=== PATIENT | male | born 1990 | race Caucasian/White ===

== ENCOUNTER 2018-02-15 11:17 | Inpatient (IN) | payer MEDICAID ==
[~2018-02-15] VITALS: Ht 167.6 cm; Wt 61.9 kg
[~2018-02-15 11:17] MED LIST: ALBU2.5V13 IH; CLON0.1T PO; DIPH25CA83 PO; DOCU-138 PO; FAMO-134 MT; HYDR-4001 PO; ONDA4SOL2 PO; PHEN100C4 PO
[2018-02-15] MEDS ORDERED: PIPERACILLIN/TAZ 3.375G PREMIX 50 ML IV ONE (12:00)
[2018-02-15] MEDS ORDERED: SODIUM CHLORIDE 0.9% 1000ML BAG (SEPSIS BOLUS) IV ONE (12:00)
[2018-02-15] MEDS ORDERED: VANCOMYCIN 1 G PREMIX 200 ML IV ONE (12:00)
[2018-02-15 12:38] LABS: BG BASE EXCESS 7.1 mmol/L (-2.0-2.0); BG CARBOXYHEMOGLOBIN 0.3 % (0.5-1.5); BG DEOXYHEMOGLOBIN 2.7 % (0.0-5.0); BG FRACTION INSPIRED OXYGEN 40; BG HCO3 ACT 33.7 mmol/L (22.0-26.0); BG METHEMOGLOBIN 0.3 % (0.0-1.5); BG OXYGEN SATURATION 97.3 % (92.0-98.5); BG OXYHEMOGLOBIN 96.7 % (94.0-97.0); BG PCO2 55.4 mmHg (35.0-45.0); BG PH 7.402 (7.350-7.450); BG PO2 96.1 mmHg (75.0-100.0); BG SAMPLE SITE RIGHT RADIAL; BG TIDAL VOLUME(mL) 500 mL; BG TOTAL HEMOGLOBIN 14.9 g/dL (12.0-18.0); BG VENT MODE VENT - A/C; BG VENT RATE 12 set
[2018-02-15 12:49] LABS: HEMATOCRIT. 44.9 % (42.0-52.0); MEAN CORPUSCULAR HEMOGLOBIN 29.6 pg (28.0-32.0); MEAN CORPUSCULAR VOLUME 88.3 fL (80.0-94.0); PLATELET 330 x1000/uL (130-400); RED BLOOD CELL COUNT 5.08 mill/uL (4.7-6.1); RED CELL DISTRIBUTION WIDTH 13.2 % (11.6-14.6)
[2018-02-15 12:53] LABS: INR 1.1; PARTIAL THROMBOPLASTIN TIME 25.6 sec (23.4-31.0); PROTHROMBIN TIME 11.4 sec (9.4-11.6)
[2018-02-15 12:56] LABS: CHLORIDE 100 mEq/L (98-107)
[2018-02-15 13:10] LABS: PLATELET ESTIMATE NORMAL
[2018-02-15] MEDS ORDERED: PHENYTOIN SODIUM 1,000 MG in SODIUM CHLORIDE 0.9% 100 ML IV ONE (13:45)
[2018-02-15] MEDS ORDERED: PIPERACILLIN/TAZ 3.375G PREMIX 50 ML IV SCH (14:00)
[2018-02-15] MEDS ORDERED: IPRATROPIUM/ALBUTEROL 0.5-3(2.5)MG/3ML NEB HHN PRN (14:00)
[2018-02-15] MEDS: PHENYTOIN SODIUM EXTENDED 100MG CAPSULE PO SCH (14:00)
[2018-02-15] MEDS ORDERED: IPRATROPIUM/ALBUTEROL 0.5-3(2.5)MG/3ML NEB HHN SCH (18:00)
[2018-02-15 19:04] LABS: CLARITY URINE CLEAR (CLEAR); COLOR URINE YELLOW (YELLOW); KETONES URINE NEGATIVE (NEGATIVE); LEUKOCYTE ESTERASE URINE TRACE (NEGATIVE); NITRITE URINE NEGATIVE (NEGATIVE); OCCULT BLOOD URINE 3+ (NEGATIVE); PH URINE 5.5 (4.5-8.0); PROTEIN URINE NEGATIVE (NEGATIVE); SPECIFIC GRAVITY URINE 1.022 (1.005-1.030); UROBILINOGEN URINE 0.2 E.U./dL (0.2-1.0)
[2018-02-15] MEDS ORDERED: LORAZEPAM 2MG/ML CPJ IV ONE (23:00)
[2018-02-16] VITALS (11 sets, daily range): BP systolic 122–154; BP diastolic 70–82
[2018-02-16] MEDS: PIPERACILLIN/TAZ 3.375G PREMIX 50 ML IV SCH ×5 (04:00→23:34)
[2018-02-16] MEDS ORDERED: VANCOMYCIN 1 G PREMIX 200 ML IV SCH (04:00)
[2018-02-16 06:53] LABS: HEMATOCRIT. 38.2 % (42.0-52.0); HEMOGLOBIN. 12.7 g/dL (14.0-18.0); MEAN CORPUSCULAR HEMOGLOBIN 29.1 pg (28.0-32.0); MEAN CORPUSCULAR VOLUME 87.5 fL (80.0-94.0); MEAN PLATELET VOLUME 9.4 fl (7.4-10.4); PLATELET 275 x1000/uL (130-400); RED BLOOD CELL COUNT 4.36 mill/uL (4.7-6.1); RED CELL DISTRIBUTION WIDTH 13.4 % (11.6-14.6)
[2018-02-16] MEDS: PHENYTOIN SODIUM EXTENDED 100MG CAPSULE PO SCH ×2 (06:58→14:29)
[2018-02-16 07:09] LABS: CHLORIDE 104 mEq/L (98-107)
[2018-02-16] MEDS: IPRATROPIUM/ALBUTEROL 0.5-3(2.5)MG/3ML NEB HHN SCH ×3 (08:11→20:01)
[2018-02-16 10:49] LABS: PLATELET ESTIMATE NORMAL
[2018-02-16] MEDS: VANCOMYCIN 1 G PREMIX 200 ML IV SCH ×2 (15:58→21:23)
[2018-02-16 17:58] LABS: BG BASE EXCESS 4.9 mmol/L (-2.0-2.0); BG CARBOXYHEMOGLOBIN 0.3 % (0.5-1.5); BG DEOXYHEMOGLOBIN 4.6 % (0.0-5.0); BG FRACTION INSPIRED OXYGEN 50; BG HCO3 ACT 30.2 mmol/L (22.0-26.0); BG METHEMOGLOBIN 0.3 % (0.0-1.5); BG OXYGEN SATURATION 95.4 % (92.0-98.5); BG OXYHEMOGLOBIN 94.8 % (94.0-97.0); BG PCO2 47.1 mmHg (35.0-45.0); BG PH 7.425 (7.350-7.450); BG PO2 78.5 mmHg (75.0-100.0); BG SAMPLE SITE RIGHT RADIAL; BG TIDAL VOLUME(mL) 500 mL; BG TOTAL HEMOGLOBIN 13.7 g/dL (12.0-18.0); BG VENT MODE VENT - A/C; BG VENT RATE 12 set
[2018-02-16] MEDS: PHENYTOIN 100 MG/4 ML UDC NG SCH (21:37)
[2018-02-17] VITALS (12 sets, daily range): BP systolic 126–157; BP diastolic 65–88
[2018-02-17] MEDS: IPRATROPIUM/ALBUTEROL 0.5-3(2.5)MG/3ML NEB HHN SCH ×5 (00:45→21:09)
[2018-02-17] MEDS: PIPERACILLIN/TAZ 3.375G PREMIX 50 ML IV SCH ×4 (05:18→23:13)
[2018-02-17] MEDS: PHENYTOIN 100 MG/4 ML UDC NG SCH ×3 (05:18→22:41)
[2018-02-17 05:50] LABS: BASOPHILS % 0.5 % (0.0-2.0); EOSINOPHILS % 2.4 % (0.0-5.0); HEMATOCRIT. 37.9 % (42.0-52.0); HEMOGLOBIN. 12.8 g/dL (14.0-18.0); LYMPHOCYTES % 7.2 % (20.0-50.0); MEAN CORPUSCULAR HEMOGLOBIN 29.7 pg (28.0-32.0); MEAN CORPUSCULAR VOLUME 88.2 fL (80.0-94.0); MEAN PLATELET VOLUME 9.8 fl (7.4-10.4); MONOCYTES % 7.5 % (2.0-8.0); NEUTROPHILS % 82.4 % (40.0-76.0); PLATELET 246 x1000/uL (130-400); RED CELL DISTRIBUTION WIDTH 13.2 % (11.6-14.6)
[2018-02-17 06:14] LABS: CHLORIDE 103 mEq/L (98-107)
[2018-02-17 07:44] LABS: VANCOMYCIN TROUGH 53.7 ug/mL (5.0-10.0)
[2018-02-17] MEDS: ACETAMINOPHEN 650MG/20.3ML UDC PO PRN ×2 (12:28→22:41)
[2018-02-18] VITALS (12 sets, daily range): BP systolic 118–143; BP diastolic 53–78
[2018-02-18] MEDS: IPRATROPIUM/ALBUTEROL 0.5-3(2.5)MG/3ML NEB HHN SCH ×4 (02:54→20:27)
[2018-02-18] MEDS: PIPERACILLIN/TAZ 3.375G PREMIX 50 ML IV SCH ×3 (06:07→17:25)
[2018-02-18] MEDS: PHENYTOIN 100 MG/4 ML UDC NG SCH ×3 (06:07→21:18)
[2018-02-18 07:18] LABS: BASOPHILS % 0.6 % (0.0-2.0); EOSINOPHILS % 3.2 % (0.0-5.0); HEMOGLOBIN. 11.5 g/dL (14.0-18.0); LYMPHOCYTES % 7.1 % (20.0-50.0); MEAN CORPUSCULAR HEMOGLOBIN 29.6 pg (28.0-32.0); MEAN PLATELET VOLUME 9.6 fl (7.4-10.4); MONOCYTES % 9.1 % (2.0-8.0); PLATELET 232 x1000/uL (130-400); RED BLOOD CELL COUNT 3.87 mill/uL (4.7-6.1); RED CELL DISTRIBUTION WIDTH 13.2 % (11.6-14.6)
[2018-02-18] MEDS: VANCOMYCIN HCL 1000 MG/20 ML ORAL GT SCH (17:26)
[2018-02-18] MEDS: ACETAMINOPHEN 650MG/20.3ML UDC PO PRN (21:18)
[2018-02-19] VITALS (12 sets, daily range): BP systolic 123–143; BP diastolic 53–75
[2018-02-19] MEDS: PIPERACILLIN/TAZ 3.375G PREMIX 50 ML IV SCH ×4 (00:42→17:52)
[2018-02-19] MEDS: VANCOMYCIN HCL 1000 MG/20 ML ORAL GT SCH ×4 (00:43→17:53)
[2018-02-19] MEDS: PHENYTOIN 100 MG/4 ML UDC NG SCH ×3 (05:08→22:03)
[2018-02-19] MEDS: ACETAMINOPHEN 650MG/20.3ML UDC PO PRN (05:09)
[2018-02-19 06:23] LABS: BASOPHILS % 0.6 % (0.0-2.0); HEMATOCRIT. 33.1 % (42.0-52.0); HEMOGLOBIN. 11.3 g/dL (14.0-18.0); LYMPHOCYTES % 9.6 % (20.0-50.0); MEAN CORPUSCULAR HEMOGLOBIN 30.4 pg (28.0-32.0); MEAN CORPUSCULAR VOLUME 88.6 fL (80.0-94.0); MEAN PLATELET VOLUME 9.5 fl (7.4-10.4); MONOCYTES % 10.8 % (2.0-8.0); PLATELET 224 x1000/uL (130-400); RED BLOOD CELL COUNT 3.73 mill/uL (4.7-6.1)
[2018-02-19] MEDS: IPRATROPIUM/ALBUTEROL 0.5-3(2.5)MG/3ML NEB HHN SCH ×3 (08:14→20:11)
[2018-02-20] VITALS (12 sets, daily range): BP systolic 101–127; BP diastolic 52–78
[2018-02-20] MEDS: VANCOMYCIN HCL 1000 MG/20 ML ORAL GT SCH ×4 (00:30→17:36)
[2018-02-20] MEDS: PIPERACILLIN/TAZ 3.375G PREMIX 50 ML IV SCH ×4 (00:30→17:36)
[2018-02-20] MEDS: IPRATROPIUM/ALBUTEROL 0.5-3(2.5)MG/3ML NEB HHN SCH ×4 (02:38→20:37)
[2018-02-20 05:51] LABS: BASOPHILS % 0.7 % (0.0-2.0); HEMATOCRIT. 32.6 % (42.0-52.0); HEMOGLOBIN. 10.9 g/dL (14.0-18.0); LYMPHOCYTES % 17.6 % (20.0-50.0); MEAN CORPUSCULAR HEMOGLOBIN 29.9 pg (28.0-32.0); MEAN CORPUSCULAR VOLUME 88.9 fL (80.0-94.0); MEAN PLATELET VOLUME 8.9 fl (7.4-10.4); NEUTROPHILS % 66.7 % (40.0-76.0); PLATELET 240 x1000/uL (130-400); RED BLOOD CELL COUNT 3.66 mill/uL (4.7-6.1); RED CELL DISTRIBUTION WIDTH 13.1 % (11.6-14.6)
[2018-02-20] MEDS: PHENYTOIN 100 MG/4 ML UDC NG SCH ×3 (06:05→22:50)
[2018-02-20 06:18] LABS: PHOSPHORUS 3.4 mg/dL (2.5-4.9)
[2018-02-21] VITALS (10 sets, daily range): BP systolic 95–126; BP diastolic 58–78
[2018-02-21] MEDS: IPRATROPIUM/ALBUTEROL 0.5-3(2.5)MG/3ML NEB HHN SCH ×3 (01:40→14:40)
[2018-02-21] MEDS: PIPERACILLIN/TAZ 3.375G PREMIX 50 ML IV SCH ×4 (01:41→17:17)
[2018-02-21] MEDS: VANCOMYCIN HCL 1000 MG/20 ML ORAL GT SCH ×4 (01:41→17:17)
[2018-02-21] MEDS: PHENYTOIN 100 MG/4 ML UDC NG SCH ×2 (05:25→13:44)
[2018-02-21 07:20] LABS: BASOPHILS % 0.8 % (0.0-2.0); CHLORIDE 105 mEq/L (98-107); EOSINOPHILS % 4.4 % (0.0-5.0); LYMPHOCYTES % 13.3 % (20.0-50.0); MEAN CORPUSCULAR HEMOGLOBIN 30.1 pg (28.0-32.0); MEAN CORPUSCULAR VOLUME 87.5 fL (80.0-94.0); MEAN PLATELET VOLUME 8.9 fl (7.4-10.4); MONOCYTES % 8.3 % (2.0-8.0); NEUTROPHILS % 73.2 % (40.0-76.0); PLATELET 267 x1000/uL (130-400); RED BLOOD CELL COUNT 3.65 mill/uL (4.7-6.1); RED CELL DISTRIBUTION WIDTH 12.8 % (11.6-14.6)
[2018-02-21] MEDS ORDERED: POTASSIUM CHLORIDE 20MEQ/PACKET PO NR (10:00)
[2018-02-21 14:33] LABS: BG BASE EXCESS 6.2 mmol/L (-2.0-2.0); BG CARBOXYHEMOGLOBIN 0.2 % (0.5-1.5); BG DEOXYHEMOGLOBIN 16.4 % (0.0-5.0); BG FRACTION INSPIRED OXYGEN 40; BG HCO3 ACT 31.4 mmol/L (22.0-26.0); BG METHEMOGLOBIN 0.3 % (0.0-1.5); BG OXYGEN SATURATION 83.5 % (92.0-98.5); BG OXYHEMOGLOBIN 83.1 % (94.0-97.0); BG PCO2 48.4 mmHg (35.0-45.0); BG PO2 46.8 mmHg (75.0-100.0); BG SAMPLE SITE RIGHT RADIAL; BG TIDAL VOLUME(mL) 500 mL; BG TOTAL HEMOGLOBIN 10.8 g/dL (12.0-18.0); BG VENT MODE VENT - A/C; BG VENT RATE 12 set
[2018-02-21 15:15] LABS: BG BASE EXCESS 3.8 mmol/L (-2.0-2.0); BG CARBOXYHEMOGLOBIN 0.3 % (0.5-1.5); BG DEOXYHEMOGLOBIN 1.4 % (0.0-5.0); BG FRACTION INSPIRED OXYGEN 40; BG METHEMOGLOBIN 0.1 % (0.0-1.5); BG OXYGEN SATURATION 98.6 % (92.0-98.5); BG OXYHEMOGLOBIN 98.2 % (94.0-97.0); BG PCO2 40.3 mmHg (35.0-45.0); BG PH 7.459 (7.350-7.450); BG PO2 146.6 mmHg (75.0-100.0); BG SAMPLE SITE RIGHT RADIAL; BG TIDAL VOLUME(mL) 500 mL; BG TOTAL HEMOGLOBIN 10.5 g/dL (12.0-18.0); BG VENT MODE VENT - A/C; BG VENT RATE 12 set
== END 2018-02-21 19:07 | DRG 720 ==
LOC: ER 11:19 → 5EST 14:01 → ENRESERV 19:55
PROVIDERS: ADMIT Internal Medicine; ATTEND Internal Medicine
PROC: 5A1955Z Respiratory Ventilation, Greater than 96 Consecutive Hours (ICD-10-PCS; principal; 2018-02-17)
DX: A41.9 Sepsis, unspecified organism (principal); N17.0 Acute kidney failure with tubular necrosis; G93.40 Encephalopathy, unspecified; G82.50 Quadriplegia, unspecified; E43 Unspecified severe protein-calorie malnutrition; J18.9 Pneumonia, unspecified organism; Z99.11 Dependence on respirator [ventilator] status; J96.10 Chronic respiratory failure, unspecified whether with hypoxia or hypercapnia; E87.0 Hyperosmolality and hypernatremia; A04.72 Enterocolitis due to Clostridium difficile, not specified as recurrent; G40.909 Epilepsy, unspecified, not intractable, without status epilepticus; K21.9 Gastro-esophageal reflux disease without esophagitis; R13.10 Dysphagia, unspecified; D64.9 Anemia, unspecified; B95.2 Enterococcus as the cause of diseases classified elsewhere; Z16.21 Resistance to vancomycin; Z93.1 Gastrostomy status; Z87.820 Personal history of traumatic brain injury; Z93.0 Tracheostomy status; Z87.01 Personal history of pneumonia (recurrent); Z79.899 Other long term (current) drug therapy; Z68.22 Body mass index [BMI] 22.0-22.9, adult
CPT/HCPCS: 36415; 36600; 71045; 76770; 80048; 80053; 80185; 80202; 81003; 82375; 82550; 82805; 83605; 83735; 84100; 84484; 85025; 85610; 85730; 86850; 86900; 87015; 87040; 87045; 87070; 87077; 87086; 87186; 87427; 87449; 87493; 93005; 94002; 94003; 94640; 96365; 96366; 96368; 96375; 99291; A6261; C1893; J1165; J2060; J2543; J3370; J7030; J7040; J7050; J7620; A4315

== ENCOUNTER 2018-06-08 23:23 | Emergency (ER) | payer MEDICAID ==
[~2018-06-08] VITALS: Ht 167.6 cm; Wt 68.0 kg
[~2018-06-08 23:23] MED LIST changes: +ACET-2853 PO; +ACET160S PO; +AMIN30LI2 PO; +ASCO-339 MT; +BISA10SU62 RC; -CLON0.1T PO; +CRAN1CAP5 PO; +FOLI100T PO; +GABA-529 MT; +IPRA3AMP9 HHN; +LEVE1000 PO; +MOM MT; +NA P230E RC; -PHEN100C4 PO
[2018-06-09 13:33] VITALS: BP 113/62
== END 2018-06-09 13:53 ==
LOC: ER 23:23
DX: J96.90 Respiratory failure, unspecified, unspecified whether with hypoxia or hypercapnia (principal); J18.9 Pneumonia, unspecified organism; Z79.899 Other long term (current) drug therapy
CPT/HCPCS: 99285

== ENCOUNTER 2018-07-03 23:31 | Inpatient (IN) | payer MEDICAID ==
[~2018-07-03] VITALS: Ht 162.6 cm; Wt 51.7 kg
[2018-07-04] VITALS (28 sets, daily range): BP systolic 90–114; BP diastolic 32–79
[2018-07-04] MEDS ORDERED: SODIUM CHLORIDE 0.9% 1000ML BAG (SEPSIS BOLUS) IV ONE (00:30)
[2018-07-04] MEDS ORDERED: ACETAMINOPHEN 650MG SUPP PR NR (01:59)
[2018-07-04] MEDS ORDERED: SODIUM CHLORIDE 0.9% 1000ML BAG (SEPSIS BOLUS) IV NR (02:00)
[2018-07-04] MEDS ORDERED: VANCOMYCIN 1 G PREMIX 200 ML IV NR (02:00)
[2018-07-04] MEDS ORDERED: PIPERACILLIN/TAZ 3.375G PREMIX 50 ML IV NR (02:00)
[2018-07-04 02:09] LABS: HEMOGLOBIN. 10.4 g/dL (14.0-18.0); MEAN CORPUSCULAR HEMOGLOBIN 27.5 pg (28.0-32.0); MEAN CORPUSCULAR VOLUME 84.6 fL (80.0-94.0); MEAN PLATELET VOLUME 8.9 fl (7.4-10.4); PLATELET 375 x1000/uL (130-400); RED BLOOD CELL COUNT 3.78 mill/uL (4.7-6.1); RED CELL DISTRIBUTION WIDTH 15.3 % (11.6-14.6)
[2018-07-04 02:10] LABS: CLARITY URINE CLOUDY (CLEAR); COLOR URINE DARK YELLOW (YELLOW); KETONES URINE TRACE (NEGATIVE); LEUKOCYTE ESTERASE URINE TRACE (NEGATIVE); NITRITE URINE NEGATIVE (NEGATIVE); OCCULT BLOOD URINE NEGATIVE (NEGATIVE); PROTEIN URINE 1+ (NEGATIVE); SPECIFIC GRAVITY URINE 1.042 (1.005-1.030)
[2018-07-04 02:10] LABS: CHLORIDE 96 mEq/L (98-107)
[2018-07-04 02:11] LABS: INR 1.3; PROTHROMBIN TIME 12.7 sec (9.1-11.1)
[2018-07-04 04:03] LABS: PLATELET ESTIMATE NORMAL
[2018-07-04 04:56] LABS: BG BASE EXCESS 7.4 mmol/L (-2.0-2.0); BG CARBOXYHEMOGLOBIN 0.3 % (0.5-1.5); BG DEOXYHEMOGLOBIN 0.9 % (0.0-5.0); BG FRACTION INSPIRED OXYGEN 100; BG HCO3 ACT 32.2 mmol/L (22.0-26.0); BG METHEMOGLOBIN 0.5 % (0.0-1.5); BG OXYGEN SATURATION 99.1 % (92.0-98.5); BG OXYHEMOGLOBIN 98.3 % (94.0-97.0); BG PCO2 46.8 mmHg (35.0-45.0); BG PH 7.455 (7.350-7.450); BG PO2 164.1 mmHg (75.0-100.0); BG SAMPLE SITE RIGHT RADIAL; BG TIDAL VOLUME(mL) 450 mL; BG TOTAL HEMOGLOBIN 9.6 g/dL (12.0-18.0); BG VENT MODE VENT - A/C; BG VENT RATE 14 set
[2018-07-04] MEDS ORDERED: ONDANSETRON HCL 4MG/2ML INJ IV PRN (06:30)
[2018-07-04] MEDS ORDERED: CLONIDINE 0.1MG TABLET PO PRN (06:30)
[2018-07-04] MEDS ORDERED: ACETAMINOPHEN 650MG/20.3ML UDC GT PRN (06:30)
[2018-07-04] MEDS ORDERED: MORPHINE SULFATE 4 MG/ML CPJ (NOT FOR IM USE) IV PRN (06:45)
[2018-07-04] MEDS: DEXT 5%/0.45% NACL 1000ML 1,000 ML IV SCH ×2 (06:49→18:59)
[2018-07-04] MEDS: AMLODIPINE 10MG TABLET PO SCH (08:24)
[2018-07-04 08:37] LABS: BG BASE EXCESS 4.1 mmol/L (-2.0-2.0); BG CARBOXYHEMOGLOBIN 0.3 % (0.5-1.5); BG DEOXYHEMOGLOBIN 0.4 % (0.0-5.0); BG METHEMOGLOBIN 0.4 % (0.0-1.5); BG OXYGEN SATURATION 99.6 % (92.0-98.5); BG OXYHEMOGLOBIN 98.9 % (94.0-97.0); BG PCO2 39.4 mmHg (35.0-45.0); BG PO2 305.1 mmHg (75.0-100.0); BG SAMPLE SITE RIGHT RADIAL; BG TIDAL VOLUME(mL) 450 mL; BG TOTAL HEMOGLOBIN 9.6 g/dL (12.0-18.0); BG VENT MODE VENT - A/C; BG VENT RATE 14 set
[2018-07-04] MEDS ORDERED: ENOXAPARIN 40MG/0.4ML SYR SUBCUT SCH (09:00)
[2018-07-04] MEDS: LEVOFLOXACIN 500MG PREMIX 100 ML IV SCH (09:00)
[2018-07-04] MEDS: PANTOPRAZOLE SODIUM 40 MG/VIAL IV SCH (11:46)
[2018-07-04] MEDS ORDERED: IPRATROPIUM/ALBUTEROL 0.5-3(2.5)MG/3ML NEB HHN PRN (13:45)
[2018-07-04] MEDS: GABAPENTIN 100MG CAPSULE PO SCH ×2 (15:42→21:00)
[2018-07-04] MEDS: LEVETIRACETAM 500MG/5ML CUP PO SCH (20:47)
[2018-07-05] VITALS (24 sets, daily range): BP systolic 91–118; BP diastolic 41–75
[2018-07-05] MEDS: GABAPENTIN 100MG CAPSULE PO SCH ×3 (06:10→22:37)
[2018-07-05 06:51] LABS: HEMATOCRIT. 26.8 % (42.0-52.0); HEMOGLOBIN. 8.6 g/dL (14.0-18.0); MEAN CORPUSCULAR HEMOGLOBIN 27.5 pg (28.0-32.0); MEAN CORPUSCULAR VOLUME 85.5 fL (80.0-94.0); MEAN PLATELET VOLUME 9.9 fl (7.4-10.4); PLATELET 126 x1000/uL (130-400); RED BLOOD CELL COUNT 3.13 mill/uL (4.7-6.1); RED CELL DISTRIBUTION WIDTH 15.4 % (11.6-14.6)
[2018-07-05 06:53] LABS: CHLORIDE 101 mEq/L (98-107)
[2018-07-05] MEDS: AMLODIPINE 10MG TABLET PO SCH (08:08)
[2018-07-05 08:11] LABS: BG CARBOXYHEMOGLOBIN 0.1 % (0.5-1.5); BG DEOXYHEMOGLOBIN 2.3 % (0.0-5.0); BG FRACTION INSPIRED OXYGEN 50; BG HCO3 ACT 33.7 mmol/L (22.0-26.0); BG METHEMOGLOBIN 0.7 % (0.0-1.5); BG OXYGEN SATURATION 97.7 % (92.0-98.5); BG OXYHEMOGLOBIN 96.9 % (94.0-97.0); BG PCO2 47.8 mmHg (35.0-45.0); BG PH 7.466 (7.350-7.450); BG SAMPLE SITE RIGHT RADIAL; BG TIDAL VOLUME(mL) 450 mL; BG TOTAL HEMOGLOBIN 8.3 g/dL (12.0-18.0); BG VENT MODE VENT - A/C; BG VENT RATE 12 set
[2018-07-05 08:29] LABS: ATYPICAL LYMPHOCYTES 1; PLATELET ESTIMATE SLIGHTLY DECREASED
[2018-07-05] MEDS: IPRATROPIUM BROMIDE (0.02%) 0.5MG/2.5ML NEB HHN SCH ×3 (08:29→21:25)
[2018-07-05] MEDS: PANTOPRAZOLE SODIUM 40 MG/VIAL IV SCH (08:36)
[2018-07-05] MEDS: LEVETIRACETAM 500MG/5ML CUP PO SCH ×2 (08:36→22:36)
[2018-07-05] MEDS: DEXT 5%/0.45% NACL 1000ML 1,000 ML IV SCH (08:36)
[2018-07-05] MEDS: LEVOFLOXACIN 500MG PREMIX 100 ML IV SCH (08:37)
[2018-07-05] MEDS: ENOXAPARIN 30MG/0.3ML SYR SUBCUT SCH (08:37)
[2018-07-06] VITALS (14 sets, daily range): BP systolic 91–110; BP diastolic 45–67
[2018-07-06] MEDS: IPRATROPIUM BROMIDE (0.02%) 0.5MG/2.5ML NEB HHN SCH ×3 (02:01→14:50)
[2018-07-06] MEDS: GABAPENTIN 100MG CAPSULE PO SCH ×3 (06:51→21:33)
[2018-07-06] MEDS: PANTOPRAZOLE SODIUM 40 MG/VIAL IV SCH (10:10)
[2018-07-06] MEDS: LEVETIRACETAM 500MG/5ML CUP PO SCH ×2 (10:10→20:36)
[2018-07-06] MEDS: ENOXAPARIN 30MG/0.3ML SYR SUBCUT SCH (10:14)
[2018-07-06] MEDS: LEVOFLOXACIN 500MG PREMIX 100 ML IV SCH (10:16)
[2018-07-06] MEDS: AMLODIPINE 10MG TABLET PO SCH (10:19)
[2018-07-06] MEDS: SODIUM HYPOCHLORITE (0.25%) 480ML SOLUTION (HALF STRENGTH) TOP SCH (19:45)
[2018-07-07] VITALS (12 sets, daily range): BP systolic 93–102; BP diastolic 39–62
[2018-07-07] MEDS: IPRATROPIUM BROMIDE (0.02%) 0.5MG/2.5ML NEB HHN SCH ×4 (05:07→20:59)
[2018-07-07] MEDS: GABAPENTIN 100MG CAPSULE PO SCH ×3 (05:10→22:00)
[2018-07-07 07:53] LABS: BG BASE EXCESS 6.7 mmol/L (-2.0-2.0); BG FRACTION INSPIRED OXYGEN 50; BG HCO3 ACT 30.8 mmol/L (22.0-26.0); BG PCO2 41.5 mmHg (35.0-45.0); BG PEEP (cmH2O) 0 cmH2O; BG PH 7.488 (7.350-7.450); BG PO2 122.8 mmHg (75.0-100.0); BG SAMPLE SITE RIGHT RADIAL; BG TIDAL VOLUME(mL) 450 mL; BG VENT MODE VENT - A/C; BG VENT RATE 12 set
[2018-07-07] MEDS: LEVOFLOXACIN 500MG PREMIX 100 ML IV SCH (08:35)
[2018-07-07] MEDS: LEVETIRACETAM 500MG/5ML CUP PO SCH ×2 (08:36→20:07)
[2018-07-07] MEDS: PANTOPRAZOLE SODIUM 40 MG/VIAL IV SCH (08:36)
[2018-07-07] MEDS: AMLODIPINE 10MG TABLET PO SCH (08:37)
[2018-07-07] MEDS: SODIUM HYPOCHLORITE (0.25%) 480ML SOLUTION (HALF STRENGTH) TOP SCH (08:41)
[2018-07-07] MEDS: ENOXAPARIN 30MG/0.3ML SYR SUBCUT SCH (08:41)
[2018-07-07] MEDS ORDERED: SODIUM CHLORIDE 0.9% 500 ML IV SCH (15:00)
[2018-07-07 16:42] LABS: BASOPHILS % 0.4 % (0.0-2.0); EOSINOPHILS % 1.5 % (0.0-5.0); HEMATOCRIT. 31.5 % (42.0-52.0); HEMOGLOBIN. 9.9 g/dL (14.0-18.0); LYMPHOCYTES % 17.9 % (20.0-50.0); MEAN CORPUSCULAR HEMOGLOBIN 26.7 pg (28.0-32.0); MEAN CORPUSCULAR VOLUME 85.4 fL (80.0-94.0); MEAN PLATELET VOLUME 8.1 fl (7.4-10.4); MONOCYTES % 11.1 % (2.0-8.0); NEUTROPHILS % 69.1 % (40.0-76.0); PLATELET 328 x1000/uL (130-400); RED BLOOD CELL COUNT 3.69 mill/uL (4.7-6.1); RED CELL DISTRIBUTION WIDTH 15.3 % (11.6-14.6)
[2018-07-07] MEDS ORDERED: CEFEPIME 2,000 MG in DEXT 5% WATER 100 ML IV SCH (17:00)
[2018-07-07] MEDS ORDERED: SULFAMETHOXAZOLE/TRIMETHOPRIM 800/160MG TABLET PO SCH (21:00)
[2018-07-07] MEDS ORDERED: ACETYLCYSTEINE 100MG/ML 10% VIAL 4ML INH SCH (22:00)
[2018-07-08] MEDS ORDERED: ENOXAPARIN 40MG/0.4ML SYR SUBCUT SCH (09:00)
[2018-07-08] MEDS ORDERED: FAMOTIDINE 20MG/2ML VIAL IV SCH (09:00)
[2018-07-09] MEDS ORDERED: SODIUM HYPOCHLORITE 0.125% 473ML SOLUTION TOP SCH (09:00)
[2018-07-11] MEDS ORDERED: KEPP250 PO (14:24)
[2018-07-11] MEDS ORDERED: GABA-529 PO (14:24)
[2018-07-11] MEDS ORDERED: DOCU-138 PO (14:24)
[2018-07-11] MEDS ORDERED: LEVO500T2 MT (14:25)
== END 2018-07-08 00:03 | DRG 720 ==
LOC: ER 23:31 → CVICU 07-04 03:20 → EDBEDREQTM 07-04 03:23 → EDBEDREQ 07-04 03:23 → ENRESERV 07-04 03:41 → 5EST 07-05 16:10
PROVIDERS: ADMIT Hospitalist; ATTEND Hospitalist
PROC: 5A1955Z Respiratory Ventilation, Greater than 96 Consecutive Hours (ICD-10-PCS; principal; 2018-07-03)
PROC: 0W9B30Z Drainage of Left Pleural Cavity with Drainage Device, Percutaneous Approach (ICD-10-PCS; 2018-07-04)
PROC: 0WPBX0Z Removal of Drainage Device from Left Pleural Cavity, External Approach (ICD-10-PCS; 2018-07-06)
DX: A41.9 Sepsis, unspecified organism (principal); J96.20 Acute and chronic respiratory failure, unspecified whether with hypoxia or hypercapnia; Z99.11 Dependence on respirator [ventilator] status; J18.9 Pneumonia, unspecified organism; G82.50 Quadriplegia, unspecified; E46 Unspecified protein-calorie malnutrition; Z93.0 Tracheostomy status; L89.324 Pressure ulcer of left buttock, stage 4; L89.154 Pressure ulcer of sacral region, stage 4; L89.894 Pressure ulcer of other site, stage 4; N39.0 Urinary tract infection, site not specified; D64.9 Anemia, unspecified; G40.909 Epilepsy, unspecified, not intractable, without status epilepticus; Z66 Do not resuscitate; J93.9 Pneumothorax, unspecified; R13.10 Dysphagia, unspecified; E86.0 Dehydration; I95.9 Hypotension, unspecified; Z93.1 Gastrostomy status; Z79.899 Other long term (current) drug therapy; Z68.1 Body mass index [BMI] 19.9 or less, adult
CPT/HCPCS: 36415; 36600; 51702; 71045; 82375; 82805; 83605; 83880; 84134; 84145; 84484; 87070; 87077; 87186; 87804; 93005; 93970; 94002; 94003; 94640; 96361; 96365; 96366; 96368; 99291; A6261; C9113; J0692; J1650; J1956; J2270; J2543; J3370; J3490; J7030; J7040; J7050; J7060; J7608

== ENCOUNTER 2018-07-09 03:36 | Inpatient (IN) | payer MEDICAID ==
[~2018-07-09] VITALS: Ht 175.3 cm; Wt 44.2 kg
[2018-07-09] MEDS ORDERED: SODIUM CHLORIDE 0.9% 1000ML BAG (SEPSIS BOLUS) IV ONE (03:45)
[2018-07-09 04:56] LABS: HEMATOCRIT. 32.4 % (42.0-52.0); HEMOGLOBIN. 10.1 g/dL (14.0-18.0); MEAN CORPUSCULAR HEMOGLOBIN 26.3 pg (28.0-32.0); MEAN CORPUSCULAR VOLUME 84.8 fL (80.0-94.0); PLATELET 428 x1000/uL (130-400); RED BLOOD CELL COUNT 3.82 mill/uL (4.7-6.1); RED CELL DISTRIBUTION WIDTH 15.8 % (11.6-14.6)
[2018-07-09 05:05] LABS: CHLORIDE 105 mEq/L (98-107)
[2018-07-09] MEDS ORDERED: VANCOMYCIN 1 G PREMIX 200 ML IV NR (05:30)
[2018-07-09] MEDS ORDERED: CLINDAMYCIN 600 MG in DEXTROSE 5% WATER 50 ML IV NR (05:30)
[2018-07-09] MEDS ORDERED: CEFEPIME HCL 2000MG/VIAL INJ IV ONE (05:30)
[2018-07-09] MEDS ORDERED: CEFEPIME 2,000 MG in DEXT 5% WATER 100 ML IV NR (05:45)
[2018-07-09 07:40] LABS: PLATELET ESTIMATE SLIGHTLY INCREASED
[2018-07-09 13:28] LABS: BG BASE EXCESS -3.2 mmol/L (-2.0-2.0); BG CARBOXYHEMOGLOBIN 0.3 % (0.5-1.5); BG DEOXYHEMOGLOBIN 0.5 % (0.0-5.0); BG FRACTION INSPIRED OXYGEN 100; BG HCO3 ACT 20.1 mmol/L (22.0-26.0); BG METHEMOGLOBIN 0.1 % (0.0-1.5); BG OXYGEN SATURATION 99.5 % (92.0-98.5); BG OXYHEMOGLOBIN 99.1 % (94.0-97.0); BG PCO2 28.6 mmHg (35.0-45.0); BG PH 7.464 (7.350-7.450); BG PO2 251.4 mmHg (75.0-100.0); BG SAMPLE SITE RIGHT RADIAL; BG TIDAL VOLUME(mL) 400 mL; BG TOTAL HEMOGLOBIN 7.3 g/dL (12.0-18.0); BG VENT MODE VENT - A/C; BG VENT RATE 14 set
[2018-07-09 15:02] VITALS: BP 115/63
[2018-07-09 15:13] VITALS: BP 115/63
[2018-07-09] MEDS: IPRATROPIUM BROMIDE (0.02%) 0.5MG/2.5ML NEB HHN SCH (16:10)
[2018-07-09] MEDS ORDERED: ONDANSETRON HCL 4MG/2ML INJ IV PRN (16:45)
[2018-07-09] MEDS ORDERED: IPRATROPIUM/ALBUTEROL 0.5-3(2.5)MG/3ML NEB INH PRN (16:45)
[2018-07-09] MEDS ORDERED: GUAIFENESIN 200MG/10ML SUGAR FREE UDC PO PRN (16:45)
[2018-07-09] MEDS ORDERED: CEFTRIAXONE 1 G PREMIX 50 ML IV SCH (16:45)
[2018-07-09] MEDS ORDERED: HYDROCODONE/ACETAMINOPHEN 5/325MG TABLET PO PRN (16:45)
[2018-07-09] MEDS ORDERED: MAGNESIUM/ALUMINUM HYDROXIDE/SIMETHICONE 30ML UDC PO PRN (16:45)
[2018-07-09] MEDS ORDERED: ACETAMINOPHEN 325MG TABLET PO PRN (16:45)
[2018-07-09] MEDS ORDERED: DOCUSATE SODIUM 100MG CAPSULE PO PRN (16:45)
[2018-07-09] MEDS ORDERED: ACETAMINOPHEN 650MG SUPP PR PRN (16:45)
[2018-07-09] MEDS ORDERED: ACETAMINOPHEN 650MG/20.3ML UDC GT PRN (16:45)
[2018-07-09] MEDS ORDERED: LORAZEPAM 2MG/ML CPJ IV PRN ×2 (16:45)
[2018-07-09] MEDS ORDERED: CLONIDINE 0.1MG TABLET PO PRN (16:45)
[2018-07-09] MEDS ORDERED: NA PHOS,M-B/NA PHOS,DI-BA ENEMA 118ML PR PRN (16:45)
[2018-07-09 18:00] VITALS: BP 124/67
[2018-07-09] MEDS: DEXT 5%/0.45% NACL 1000ML 1,000 ML IV SCH (19:13)
[2018-07-09] MEDS: ENOXAPARIN 40MG/0.4ML SYR SUBCUT SCH (19:15)
[2018-07-09 19:22] LABS: CLARITY URINE CLEAR (CLEAR); COLOR URINE YELLOW (YELLOW); KETONES URINE NEGATIVE (NEGATIVE); LEUKOCYTE ESTERASE URINE TRACE (NEGATIVE); NITRITE URINE NEGATIVE (NEGATIVE); OCCULT BLOOD URINE 3+ (NEGATIVE); PROTEIN URINE TRACE (NEGATIVE); SPECIFIC GRAVITY URINE 1.019 (1.005-1.030); UROBILINOGEN URINE 0.2 E.U./dL (0.2-1.0)
[2018-07-09] MEDS: LEVOFLOXACIN 500MG PREMIX 100 ML IV SCH (19:29)
[2018-07-09 19:31] LABS: METHADONE URINE SCREEN NEGATIVE (NEGATIVE)
[2018-07-09 19:32] LABS: *AMPHETAMINES SCREEN URINE NEGATIVE (NEGATIVE); *BARBITURATES SCREEN URINE NEGATIVE (NEGATIVE); *BENZODIAZEPINES SCREEN URINE NEGATIVE (NEGATIVE); *COCAINE SCREEN URINE NEGATIVE (NEGATIVE); CANNABINOID URINE SCREEN NEGATIVE (NEGATIVE); OPIATES URINE SCREEN PRESUMTIVE POSITIVE (NEGATIVE); PHENCYCLIDINE URINE SCREEN NEGATIVE (NEGATIVE)
[2018-07-09 20:00] VITALS: BP 122/66
[2018-07-09] MEDS: IPRATROPIUM/ALBUTEROL 0.5-3(2.5)MG/3ML NEB INH SCH (20:51)
[2018-07-09] MEDS: SODIUM CHLORIDE 0.9% INJ 3ML FLUSH IVF SCH (21:39)
[2018-07-09 22:00] VITALS: BP 118/62
[2018-07-10] VITALS (13 sets, daily range): BP systolic 90–134; BP diastolic 52–88
[2018-07-10] MEDS: IPRATROPIUM/ALBUTEROL 0.5-3(2.5)MG/3ML NEB INH SCH (02:36)
[2018-07-10] MEDS: SODIUM CHLORIDE 0.9% INJ 3ML FLUSH IVF SCH ×3 (06:00→21:32)
[2018-07-10] MEDS: DEXT 5%/0.45% NACL 1000ML 1,000 ML IV SCH ×2 (06:10→22:05)
[2018-07-10 06:34] LABS: BASOPHILS % 0.3 % (0.0-2.0); EOSINOPHILS % 2.1 % (0.0-5.0); HEMATOCRIT. 25.7 % (42.0-52.0); HEMOGLOBIN. 8.3 g/dL (14.0-18.0); MEAN CORPUSCULAR HEMOGLOBIN 27.1 pg (28.0-32.0); MEAN CORPUSCULAR VOLUME 83.8 fL (80.0-94.0); MONOCYTES % 4.5 % (2.0-8.0); NEUTROPHILS % 83.1 % (40.0-76.0); PLATELET 354 x1000/uL (130-400); RED BLOOD CELL COUNT 3.07 mill/uL (4.7-6.1); RED CELL DISTRIBUTION WIDTH 15.8 % (11.6-14.6)
[2018-07-10] MEDS: IPRATROPIUM BROMIDE (0.02%) 0.5MG/2.5ML NEB HHN SCH ×3 (09:25→20:34)
[2018-07-10 09:55] LABS: CHLORIDE 100 mEq/L (98-107)
[2018-07-10] MEDS ORDERED: LIDOCAINE HCL/EPINEPHRINE 1%-EPI 1:100,000 50 ML VIAL INFIL NR (10:00)
[2018-07-10 10:28] LABS: HDL CHOLESTEROL 22 mg/dL (40-59); LDL CHOLESTEROL 51 mg/dL (5-100)
[2018-07-10] MEDS ORDERED: LIDOCAINE HCL/EPINEPHRINE 1%-EPI 1:100,000 20 ML VIAL INFIL NR (10:30)
[2018-07-10] MEDS: SODIUM HYPOCHLORITE 0.125% 473ML SOLUTION TOP SCH (13:38)
[2018-07-10] MEDS: LEVOFLOXACIN 500MG PREMIX 100 ML IV SCH (15:31)
[2018-07-10] MEDS: ENOXAPARIN 40MG/0.4ML SYR SUBCUT SCH (18:36)
[2018-07-10] MEDS ORDERED: MORPHINE SULFATE 4 MG/ML CPJ (NOT FOR IM USE) IV NR (22:00)
[2018-07-10] MEDS ORDERED: SODIUM CHLORIDE 0.9% 250 ML IV NR (22:00)
[2018-07-11] VITALS (13 sets, daily range): BP systolic 91–115; BP diastolic 50–75
[2018-07-11] MEDS: IPRATROPIUM BROMIDE (0.02%) 0.5MG/2.5ML NEB HHN SCH ×3 (00:39→20:28)
[2018-07-11] MEDS: SODIUM CHLORIDE 0.9% INJ 3ML FLUSH IVF SCH ×3 (05:18→21:22)
[2018-07-11 06:20] LABS: BASOPHILS % 0.3 % (0.0-2.0); EOSINOPHILS % 1.2 % (0.0-5.0); HEMATOCRIT. 27.8 % (42.0-52.0); HEMOGLOBIN. 9.1 g/dL (14.0-18.0); LYMPHOCYTES % 8.8 % (20.0-50.0); MEAN CORPUSCULAR HEMOGLOBIN 27.3 pg (28.0-32.0); MEAN CORPUSCULAR VOLUME 83.8 fL (80.0-94.0); MEAN PLATELET VOLUME 7.6 fl (7.4-10.4); MONOCYTES % 3.8 % (2.0-8.0); NEUTROPHILS % 85.9 % (40.0-76.0); PLATELET 401 x1000/uL (130-400); RED BLOOD CELL COUNT 3.32 mill/uL (4.7-6.1); RED CELL DISTRIBUTION WIDTH 15.9 % (11.6-14.6)
[2018-07-11] MEDS: METOCLOPRAMIDE HCL 10MG/2ML VIAL IV SCH ×4 (08:32→23:08)
[2018-07-11] MEDS: GABAPENTIN 100MG CAPSULE PO SCH ×3 (08:33→21:21)
[2018-07-11] MEDS: LEVETIRACETAM 250MG TABLET PO SCH ×2 (08:33→21:21)
[2018-07-11 09:54] LABS: CHLORIDE 101 mEq/L (98-107)
[2018-07-11] MEDS ORDERED: GABA-529 PO (14:24)
[2018-07-11] MEDS ORDERED: KEPP250 PO (14:24)
[2018-07-11] MEDS ORDERED: DOCU-138 PO (14:24)
[2018-07-11] MEDS ORDERED: LEVO500T2 MT (14:25)
[2018-07-11] MEDS: LEVOFLOXACIN 500MG PREMIX 100 ML IV SCH (15:55)
[2018-07-11] MEDS: ENOXAPARIN 40MG/0.4ML SYR SUBCUT SCH (17:21)
[2018-07-11] MEDS: DEXT 5%/0.45% NACL 1000ML 1,000 ML IV SCH (19:32)
[2018-07-11] MEDS ORDERED: SODIUM CHLORIDE 0.9% 250 ML IV ONE (22:00)
[2018-07-12] VITALS (11 sets, daily range): BP systolic 62–128; BP diastolic 35–80
[2018-07-12] MEDS: IPRATROPIUM BROMIDE (0.02%) 0.5MG/2.5ML NEB HHN SCH ×4 (01:45→19:58)
[2018-07-12] MEDS: GABAPENTIN 100MG CAPSULE PO SCH ×3 (05:53→22:10)
[2018-07-12] MEDS: DEXT 5%/0.45% NACL 1000ML 1,000 ML IV SCH ×2 (05:53→14:22)
[2018-07-12] MEDS: SODIUM CHLORIDE 0.9% INJ 3ML FLUSH IVF SCH ×3 (05:53→22:09)
[2018-07-12] MEDS: METOCLOPRAMIDE HCL 10MG/2ML VIAL IV SCH ×3 (05:53→17:25)
[2018-07-12] MEDS: LEVETIRACETAM 250MG TABLET PO SCH ×2 (08:47→22:09)
[2018-07-12 11:45] LABS: BASOPHILS % 0.4 % (0.0-2.0); HEMOGLOBIN. 8.6 g/dL (14.0-18.0); LYMPHOCYTES % 16.4 % (20.0-50.0); MEAN CORPUSCULAR HEMOGLOBIN 26.8 pg (28.0-32.0); MEAN CORPUSCULAR VOLUME 83.8 fL (80.0-94.0); MEAN PLATELET VOLUME 7.7 fl (7.4-10.4); NEUTROPHILS % 76.2 % (40.0-76.0); PLATELET 390 x1000/uL (130-400); RED BLOOD CELL COUNT 3.22 mill/uL (4.7-6.1); RED CELL DISTRIBUTION WIDTH 15.6 % (11.6-14.6)
[2018-07-12] MEDS: LEVOFLOXACIN 250MG TABLET PO SCH (11:55)
[2018-07-12] MEDS: SODIUM HYPOCHLORITE 0.125% 473ML SOLUTION TOP SCH (11:56)
[2018-07-12 12:25] LABS: CHLORIDE 105 mEq/L (98-107)
[2018-07-12] MEDS: ENOXAPARIN 40MG/0.4ML SYR SUBCUT SCH (17:25)
[2018-07-12] MEDS ORDERED: BISACODYL 10MG SUPP PR NR (20:00)
[2018-07-13] VITALS (12 sets, daily range): BP systolic 88–111; BP diastolic 28–62
[2018-07-13] MEDS: METOCLOPRAMIDE HCL 10MG/2ML VIAL IV SCH ×4 (00:29→18:50)
[2018-07-13] MEDS: IPRATROPIUM BROMIDE (0.02%) 0.5MG/2.5ML NEB HHN SCH ×3 (01:38→13:39)
[2018-07-13] MEDS: SODIUM CHLORIDE 0.9% INJ 3ML FLUSH IVF SCH ×2 (05:18→11:51)
[2018-07-13] MEDS: GABAPENTIN 100MG CAPSULE PO SCH ×2 (05:18→11:38)
[2018-07-13] MEDS: DEXT 5%/0.45% NACL 1000ML 1,000 ML IV SCH ×2 (05:18→18:50)
[2018-07-13] MEDS: LEVETIRACETAM 250MG TABLET PO SCH (08:28)
[2018-07-13] MEDS: LEVOFLOXACIN 250MG TABLET PO SCH (11:33)
[2018-07-13] MEDS: ENOXAPARIN 40MG/0.4ML SYR SUBCUT SCH (18:49)
== END 2018-07-13 19:51 | DRG 710 ==
LOC: ER 03:45 → EDBEDREQTM 05:32 → EDBEDREQSVC 05:32 → EDBEDREQ 05:32 → EDBEDREQSVC 08:20 → EDBEDREQ 08:20 → ENRESERV 12:20 → CANRESERV 12:22 → 5EST 13:52
PROVIDERS: ADMIT Family Medicine; ATTEND Family Medicine
PROC: 5A1955Z Respiratory Ventilation, Greater than 96 Consecutive Hours (ICD-10-PCS; principal; 2018-07-09)
PROC: 0QB10ZZ Excision of Sacrum, Open Approach (ICD-10-PCS; 2018-07-10)
PROC: 0QB30ZZ Excision of Left Pelvic Bone, Open Approach (ICD-10-PCS; 2018-07-10)
DX: A41.9 Sepsis, unspecified organism (principal); J96.21 Acute and chronic respiratory failure with hypoxia; J69.0 Pneumonitis due to inhalation of food and vomit; G93.40 Encephalopathy, unspecified; Z99.11 Dependence on respirator [ventilator] status; E43 Unspecified severe protein-calorie malnutrition; L89.109 Pressure ulcer of unspecified part of back, unspecified stage; R40.3 Persistent vegetative state; L89.894 Pressure ulcer of other site, stage 4; L89.154 Pressure ulcer of sacral region, stage 4; L89.324 Pressure ulcer of left buttock, stage 4; L89.899 Pressure ulcer of other site, unspecified stage; Z93.0 Tracheostomy status; D63.8 Anemia in other chronic diseases classified elsewhere; J44.9 Chronic obstructive pulmonary disease, unspecified; E11.9 Type 2 diabetes mellitus without complications; K56.7 Ileus, unspecified; G40.909 Epilepsy, unspecified, not intractable, without status epilepticus; Z66 Do not resuscitate; I10 Essential (primary) hypertension; Z93.1 Gastrostomy status; Z87.820 Personal history of traumatic brain injury; Z68.1 Body mass index [BMI] 19.9 or less, adult; Z74.01 Bed confinement status
CPT/HCPCS: 36415; 36600; 71045; 74018; 80053; 80061; 80305; 81003; 82375; 82805; 82962; 83036; 83605; 84134; 85025; 87040; 87070; 87075; 87077; 87086; 87186; 87205; 93005; 94002; 94003; 94640; 96361; 96365; 96366; 96368; 99285; A6261; J0692; J1650; J1956; J2060; J2270; J2405; J2765; J3370; J3490; J7030; J7040; J7050; J7060; J7620; A4315

== ENCOUNTER 2018-08-29 02:29 | Inpatient (IN) | payer MEDICAID ==
[~2018-08-29] VITALS: Ht 152.4 cm; Wt 36.3 kg
[2018-08-29] VITALS (8 sets, daily range): BP systolic 100–122; BP diastolic 54–75
[~2018-08-29 02:29] MED LIST changes: -ACET-2853 PO; -ACET160S PO; -ALBU2.5V13 IH; -AMIN30LI2 PO; -ASCO-339 MT; -BISA10SU62 RC; -CRAN1CAP5 PO; -DIPH25CA83 PO; -FAMO-134 MT; -FOLI100T PO; -GABA-529 MT; +GABA-529 PO; -HYDR-4001 PO; -IPRA3AMP9 HHN; +KEPP250 PO; -LEVE1000 PO; +LEVO500T2 MT; -MOM MT; -NA P230E RC; -ONDA4SOL2 PO
[2018-08-29] MEDS ORDERED: SODIUM CHLORIDE 0.9% 1,000 ML IV ONE (02:43)
[2018-08-29] MEDS ORDERED: VANCOMYCIN 1 G PREMIX 200 ML IV ONE (02:45)
[2018-08-29] MEDS ORDERED: PIPERACILLIN/TAZ 3.375G PREMIX 50 ML IV ONE (02:45)
[2018-08-29 03:52] LABS: BASOPHILS % 0.5 % (0.0-2.0); EOSINOPHILS % 0.2 % (0.0-5.0); HEMATOCRIT. 33.7 % (42.0-52.0); HEMOGLOBIN. 10.8 g/dL (14.0-18.0); LYMPHOCYTES % 11.6 % (20.0-50.0); MEAN CORPUSCULAR HEMOGLOBIN 27.1 pg (28.0-32.0); MEAN CORPUSCULAR VOLUME 84.6 fL (80.0-94.0); MEAN PLATELET VOLUME 7.6 fl (7.4-10.4); NEUTROPHILS % 81.7 % (40.0-76.0); PLATELET 410 x1000/uL (130-400); RED BLOOD CELL COUNT 3.98 mill/uL (4.7-6.1); RED CELL DISTRIBUTION WIDTH 16.7 % (11.6-14.6)
[2018-08-29 04:00] LABS: CHLORIDE 103 mEq/L (98-107)
[2018-08-29 06:07] LABS: CLARITY URINE CLOUDY (CLEAR); COLOR URINE YELLOW (YELLOW); KETONES URINE NEGATIVE (NEGATIVE); LEUKOCYTE ESTERASE URINE 3+ (NEGATIVE); NITRITE URINE NEGATIVE (NEGATIVE); OCCULT BLOOD URINE 3+ (NEGATIVE); PROTEIN URINE 3+ (NEGATIVE); SPECIFIC GRAVITY URINE 1.019 (1.005-1.030)
[2018-08-29 06:16] LABS: INR 1.2; PARTIAL THROMBOPLASTIN TIME 26.5 sec (23.4-31.0); PROTHROMBIN TIME 11.7 sec (9.1-11.1)
[2018-08-29] MEDS ORDERED: IPRATROPIUM/ALBUTEROL 0.5-3(2.5)MG/3ML NEB HHN PRN ×2 (12:00→13:45)
[2018-08-29] MEDS ORDERED: IPRATROPIUM/ALBUTEROL 0.5-3(2.5)MG/3ML NEB HHN SCH (12:00)
[2018-08-29] MEDS ORDERED: HYDROCODONE/ACETAMINOPHEN 5/325MG TABLET PO PRN ×3 (12:00→15:45)
[2018-08-29] MEDS ORDERED: VANCOMYCIN 1 G PREMIX 200 ML IV SCH (14:00)
[2018-08-29] MEDS: PANTOPRAZOLE SODIUM 40 MG/VIAL IV SCH (14:02)
[2018-08-29] MEDS: IPRATROPIUM/ALBUTEROL 0.5-3(2.5)MG/3ML NEB HHN SCH ×2 (15:07→20:17)
[2018-08-29] MEDS: ACETYLCYSTEINE 100MG/ML 10% VIAL 4ML INH SCH (15:08)
[2018-08-29] MEDS: MEROPENEM 1000MG in NORMAL SALINE 100ML IV SCH ×2 (15:22→21:10)
[2018-08-29] MEDS: VANCOMYCIN 1 G PREMIX 200 ML IV SCH (17:55)
[2018-08-29] MEDS: LEVETIRACETAM 500MG/5ML CUP PO SCH (21:09)
[2018-08-29] MEDS: COLISTIMETHATE SODIUM 150MG/VIAL INH SCH (22:36)
[2018-08-30] VITALS (13 sets, daily range): BP systolic 103–140; BP diastolic 50–80
[2018-08-30] MEDS: ACETYLCYSTEINE 100MG/ML 10% VIAL 4ML INH SCH ×3 (00:21→13:06)
[2018-08-30] MEDS: IPRATROPIUM/ALBUTEROL 0.5-3(2.5)MG/3ML NEB HHN SCH ×6 (00:22→19:50)
[2018-08-30] MEDS: MEROPENEM 1000MG in NORMAL SALINE 100ML IV SCH ×3 (05:22→21:52)
[2018-08-30] MEDS: VANCOMYCIN 1 G PREMIX 200 ML IV SCH ×2 (05:22→18:28)
[2018-08-30 06:47] LABS: HEMATOCRIT. 30.5 % (42.0-52.0); MEAN CORPUSCULAR HEMOGLOBIN 27.6 pg (28.0-32.0); MEAN CORPUSCULAR VOLUME 84.4 fL (80.0-94.0); PLATELET 391 x1000/uL (130-400); RED BLOOD CELL COUNT 3.61 mill/uL (4.7-6.1); RED CELL DISTRIBUTION WIDTH 16.7 % (11.6-14.6)
[2018-08-30 07:06] LABS: CHLORIDE 105 mEq/L (98-107)
[2018-08-30] MEDS: ASCORBIC ACID 500 MG TABLET GT SCH (09:14)
[2018-08-30] MEDS: MULTIVITAMINS,THER W-MINERALS TABLET GT SCH (09:14)
[2018-08-30] MEDS: LEVETIRACETAM 500MG/5ML CUP PO SCH ×2 (09:14→20:27)
[2018-08-30] MEDS: PANTOPRAZOLE SODIUM 40 MG/VIAL IV SCH (09:14)
[2018-08-30] MEDS: ZINC SULFATE 220 MG ( 50 ) CAPSULE GT SCH (09:14)
[2018-08-30] MEDS: COLISTIMETHATE SODIUM 150MG/VIAL INH SCH ×2 (09:35→19:47)
[2018-08-30 13:56] LABS: PLATELET ESTIMATE NORMAL
[2018-08-31] VITALS (12 sets, daily range): BP systolic 106–128; BP diastolic 56–86
[2018-08-31] MEDS: ACETYLCYSTEINE 100MG/ML 10% VIAL 4ML INH SCH ×3 (00:01→16:18)
[2018-08-31] MEDS: IPRATROPIUM/ALBUTEROL 0.5-3(2.5)MG/3ML NEB HHN SCH ×6 (00:01→19:56)
[2018-08-31] MEDS: MEROPENEM 1000MG in NORMAL SALINE 100ML IV SCH ×3 (05:23→21:17)
[2018-08-31] MEDS: VANCOMYCIN 1 G PREMIX 200 ML IV SCH ×2 (05:24→17:31)
[2018-08-31 07:14] LABS: BASOPHILS % 0.4 % (0.0-2.0); EOSINOPHILS % 0.3 % (0.0-5.0); HEMATOCRIT. 31.1 % (42.0-52.0); HEMOGLOBIN. 9.8 g/dL (14.0-18.0); LYMPHOCYTES % 9.8 % (20.0-50.0); MEAN CORPUSCULAR HEMOGLOBIN 27.3 pg (28.0-32.0); MEAN CORPUSCULAR VOLUME 86.7 fL (80.0-94.0); MEAN PLATELET VOLUME 8.1 fl (7.4-10.4); MONOCYTES % 4.7 % (2.0-8.0); NEUTROPHILS % 84.8 % (40.0-76.0); PLATELET 353 x1000/uL (130-400); RED BLOOD CELL COUNT 3.59 mill/uL (4.7-6.1); RED CELL DISTRIBUTION WIDTH 16.8 % (11.6-14.6)
[2018-08-31 07:27] LABS: CHLORIDE 106 mEq/L (98-107)
[2018-08-31 07:34] LABS: VANCOMYCIN TROUGH 16.9 ug/mL (5.0-10.0)
[2018-08-31] MEDS: COLISTIMETHATE SODIUM 150MG/VIAL INH SCH ×2 (08:14→19:56)
[2018-08-31] MEDS ORDERED: DEXT 5%/0.9% NACL 1,000 ML IV SCH (09:15)
[2018-08-31] MEDS: LEVETIRACETAM 500MG/5ML CUP PO SCH ×2 (09:28→20:52)
[2018-08-31] MEDS: ASCORBIC ACID 500 MG TABLET GT SCH (09:28)
[2018-08-31] MEDS: ZINC SULFATE 220 MG ( 50 ) CAPSULE GT SCH (09:28)
[2018-08-31] MEDS: MULTIVITAMINS,THER W-MINERALS TABLET GT SCH (09:28)
[2018-08-31] MEDS: PANTOPRAZOLE SODIUM 40 MG/VIAL IV SCH (09:28)
[2018-08-31] MEDS ORDERED: LIDOCAINE HCL 1% 20ML VIAL (Pyxis) INJ ONE (14:33)
[2018-08-31] MEDS ORDERED: SODIUM BICARBONATE 4% (2.4MEQ) 5ML VIAL IV ONE (14:33)
[2018-09-01] VITALS (13 sets, daily range): BP systolic 95–121; BP diastolic 59–77
[2018-09-01] MEDS: IPRATROPIUM/ALBUTEROL 0.5-3(2.5)MG/3ML NEB HHN SCH ×6 (00:07→20:44)
[2018-09-01] MEDS: ACETYLCYSTEINE 100MG/ML 10% VIAL 4ML INH SCH ×2 (00:07→09:02)
[2018-09-01] MEDS: VANCOMYCIN 1 G PREMIX 200 ML IV SCH (05:05)
[2018-09-01] MEDS: MEROPENEM 1000MG in NORMAL SALINE 100ML IV SCH ×3 (05:05→22:57)
[2018-09-01 06:51] LABS: BASOPHILS % 0.3 % (0.0-2.0); EOSINOPHILS % 0.4 % (0.0-5.0); HEMOGLOBIN. 9.3 g/dL (14.0-18.0); LYMPHOCYTES % 10.5 % (20.0-50.0); MEAN CORPUSCULAR HEMOGLOBIN 26.9 pg (28.0-32.0); MEAN CORPUSCULAR VOLUME 83.6 fL (80.0-94.0); MEAN PLATELET VOLUME 7.8 fl (7.4-10.4); MONOCYTES % 6.7 % (2.0-8.0); NEUTROPHILS % 82.1 % (40.0-76.0); PLATELET 464 x1000/uL (130-400); RED BLOOD CELL COUNT 3.47 mill/uL (4.7-6.1); RED CELL DISTRIBUTION WIDTH 16.6 % (11.6-14.6)
[2018-09-01] MEDS: ZINC SULFATE 220 MG ( 50 ) CAPSULE GT SCH (08:38)
[2018-09-01] MEDS: MULTIVITAMINS,THER W-MINERALS TABLET GT SCH (08:38)
[2018-09-01] MEDS: ASCORBIC ACID 500 MG TABLET GT SCH (08:38)
[2018-09-01] MEDS: LEVETIRACETAM 500MG/5ML CUP PO SCH ×2 (08:38→20:15)
[2018-09-01] MEDS: FAMOTIDINE 20MG/2ML VIAL IV SCH ×2 (08:39→20:15)
[2018-09-01 11:02] LABS: CHLORIDE 105 mEq/L (98-107)
[2018-09-01] MEDS: COLISTIMETHATE SODIUM 150MG/VIAL INH SCH (20:53)
[2018-09-02] VITALS (12 sets, daily range): BP systolic 107–114; BP diastolic 66–82
[2018-09-02] MEDS: ACETYLCYSTEINE 100MG/ML 10% VIAL 4ML INH SCH ×3 (00:37→16:16)
[2018-09-02] MEDS: IPRATROPIUM/ALBUTEROL 0.5-3(2.5)MG/3ML NEB HHN SCH ×6 (00:38→20:28)
[2018-09-02] MEDS: MEROPENEM 1000MG in NORMAL SALINE 100ML IV SCH (05:25)
[2018-09-02 09:01] LABS: BG BASE EXCESS 5.1 mmol/L (-2.0-2.0); BG CARBOXYHEMOGLOBIN 0.5 % (0.5-1.5); BG DEOXYHEMOGLOBIN 17.5 % (0.0-5.0); BG FRACTION INSPIRED OXYGEN 40; BG HCO3 ACT 29.2 mmol/L (22.0-26.0); BG METHEMOGLOBIN 0.3 % (0.0-1.5); BG OXYGEN SATURATION 82.4 % (92.0-98.5); BG OXYHEMOGLOBIN 81.7 % (94.0-97.0); BG PCO2 40.7 mmHg (35.0-45.0); BG PH 7.473 (7.350-7.450); BG PO2 44.3 mmHg (75.0-100.0); BG SAMPLE SITE RIGHT RADIAL; BG TIDAL VOLUME(mL) 450 mL; BG VENT MODE VENT - A/C; BG VENT RATE 12 set
[2018-09-02] MEDS: LEVETIRACETAM 500MG/5ML CUP PO SCH ×2 (10:01→20:04)
[2018-09-02] MEDS: ZINC SULFATE 220 MG ( 50 ) CAPSULE GT SCH (10:01)
[2018-09-02] MEDS: MULTIVITAMINS,THER W-MINERALS TABLET GT SCH (10:01)
[2018-09-02] MEDS: FAMOTIDINE 20MG/2ML VIAL IV SCH ×2 (10:01→20:05)
[2018-09-02] MEDS: ASCORBIC ACID 500 MG TABLET GT SCH (10:01)
[2018-09-02 11:24] LABS: HEMATOCRIT. 31.9 % (42.0-52.0); HEMOGLOBIN. 10.1 g/dL (14.0-18.0); MEAN CORPUSCULAR HEMOGLOBIN 26.7 pg (28.0-32.0); MEAN PLATELET VOLUME 7.6 fl (7.4-10.4); PLATELET 436 x1000/uL (130-400); RED CELL DISTRIBUTION WIDTH 16.8 % (11.6-14.6)
[2018-09-02 11:59] LABS: CHLORIDE 104 mEq/L (98-107)
[2018-09-02] MEDS: COLISTIMETHATE SODIUM 150MG/VIAL INH SCH (12:31)
[2018-09-02] MEDS: SULFAMETHOXAZOLE/TRIMETHOPRIM 800/160MG TABLET PO SCH ×2 (13:28→20:04)
[2018-09-02] MEDS: LEVOFLOXACIN 500MG TABLET PO SCH (13:29)
[2018-09-02] MEDS ORDERED: DIATR MEGLU/DIATRIZOATE SOLN 30ML PO NR (14:15)
[2018-09-02] MEDS: CEFEPIME 2,000 MG in DEXT 5% WATER 100 ML IV SCH (14:51)
[2018-09-03] VITALS (12 sets, daily range): BP systolic 107–119; BP diastolic 79–91
[2018-09-03] MEDS: ACETYLCYSTEINE 100MG/ML 10% VIAL 4ML INH SCH ×3 (00:11→08:09)
[2018-09-03] MEDS: IPRATROPIUM/ALBUTEROL 0.5-3(2.5)MG/3ML NEB HHN SCH ×6 (00:30→20:41)
[2018-09-03 01:38] LABS: PLATELET ESTIMATE SLIGHTLY INCREASED
[2018-09-03] MEDS: CEFEPIME 2,000 MG in DEXT 5% WATER 100 ML IV SCH ×2 (03:11→14:05)
[2018-09-03 08:36] LABS: BASOPHILS % 0.4 % (0.0-2.0); EOSINOPHILS % 0.2 % (0.0-5.0); HEMATOCRIT. 33.8 % (42.0-52.0); HEMOGLOBIN. 10.8 g/dL (14.0-18.0); LYMPHOCYTES % 10.4 % (20.0-50.0); MEAN CORPUSCULAR HEMOGLOBIN 26.7 pg (28.0-32.0); MEAN CORPUSCULAR VOLUME 83.6 fL (80.0-94.0); MEAN PLATELET VOLUME 7.9 fl (7.4-10.4); PLATELET 516 x1000/uL (130-400); RED BLOOD CELL COUNT 4.04 mill/uL (4.7-6.1)
[2018-09-03] MEDS: ZINC SULFATE 220 MG ( 50 ) CAPSULE GT SCH (09:03)
[2018-09-03] MEDS: LEVETIRACETAM 500MG/5ML CUP PO SCH ×2 (09:03→21:50)
[2018-09-03] MEDS: FAMOTIDINE 20MG/2ML VIAL IV SCH ×2 (09:04→21:51)
[2018-09-03] MEDS: MULTIVITAMINS,THER W-MINERALS TABLET GT SCH (09:05)
[2018-09-03] MEDS: SULFAMETHOXAZOLE/TRIMETHOPRIM 800/160MG TABLET PO SCH ×2 (09:05→21:51)
[2018-09-03] MEDS: ASCORBIC ACID 500 MG TABLET GT SCH (09:05)
[2018-09-03 09:30] LABS: CHLORIDE 102 mEq/L (98-107)
[2018-09-03] MEDS: LEVOFLOXACIN 500MG TABLET PO SCH (14:05)
[2018-09-04] VITALS (12 sets, daily range): BP systolic 105–124; BP diastolic 68–91
[2018-09-04] MEDS: IPRATROPIUM/ALBUTEROL 0.5-3(2.5)MG/3ML NEB HHN SCH ×8 (00:12→23:57)
[2018-09-04] MEDS: CEFEPIME 2,000 MG in DEXT 5% WATER 100 ML IV SCH ×2 (03:50→15:25)
[2018-09-04 06:35] LABS: BASOPHILS % 0.4 % (0.0-2.0); EOSINOPHILS % 0.1 % (0.0-5.0); HEMATOCRIT. 35.9 % (42.0-52.0); HEMOGLOBIN. 11.4 g/dL (14.0-18.0); LYMPHOCYTES % 7.3 % (20.0-50.0); MEAN CORPUSCULAR HEMOGLOBIN 26.7 pg (28.0-32.0); MEAN PLATELET VOLUME 7.8 fl (7.4-10.4); MONOCYTES % 4.4 % (2.0-8.0); NEUTROPHILS % 87.8 % (40.0-76.0); PLATELET 570 x1000/uL (130-400); RED BLOOD CELL COUNT 4.27 mill/uL (4.7-6.1); RED CELL DISTRIBUTION WIDTH 16.6 % (11.6-14.6)
[2018-09-04 06:55] LABS: CHLORIDE 103 mEq/L (98-107)
[2018-09-04] MEDS: LEVETIRACETAM 500MG/5ML CUP PO SCH ×2 (09:22→20:46)
[2018-09-04] MEDS: ZINC SULFATE 220 MG ( 50 ) CAPSULE GT SCH (09:22)
[2018-09-04] MEDS: SULFAMETHOXAZOLE/TRIMETHOPRIM 800/160MG TABLET PO SCH ×2 (09:22→20:47)
[2018-09-04] MEDS: FAMOTIDINE 20MG/2ML VIAL IV SCH ×2 (09:23→20:46)
[2018-09-04] MEDS: MULTIVITAMINS,THER W-MINERALS TABLET GT SCH (09:23)
[2018-09-04] MEDS: ASCORBIC ACID 500 MG TABLET GT SCH (09:23)
[2018-09-04 09:56] LABS: BG BASE EXCESS 0.4 mmol/L (-2.0-2.0); BG CARBOXYHEMOGLOBIN 0.3 % (0.5-1.5); BG DEOXYHEMOGLOBIN 1.5 % (0.0-5.0); BG FRACTION INSPIRED OXYGEN 50; BG HCO3 ACT 24.9 mmol/L (22.0-26.0); BG METHEMOGLOBIN 0.3 % (0.0-1.5); BG OXYGEN SATURATION 98.5 % (92.0-98.5); BG OXYHEMOGLOBIN 97.9 % (94.0-97.0); BG PCO2 39.9 mmHg (35.0-45.0); BG PH 7.413 (7.350-7.450); BG PO2 133.6 mmHg (75.0-100.0); BG SAMPLE SITE RIGHT RADIAL; BG TIDAL VOLUME(mL) 450 mL; BG TOTAL HEMOGLOBIN 12.4 g/dL (12.0-18.0); BG VENT MODE VENT - A/C; BG VENT RATE 12 set
[2018-09-04] MEDS: LEVOFLOXACIN 500MG TABLET PO SCH (15:25)
[2018-09-05] VITALS (12 sets, daily range): BP systolic 96–124; BP diastolic 61–94
[2018-09-05] MEDS: CEFEPIME 2,000 MG in DEXT 5% WATER 100 ML IV SCH ×2 (02:57→15:07)
[2018-09-05] MEDS: IPRATROPIUM/ALBUTEROL 0.5-3(2.5)MG/3ML NEB HHN SCH ×6 (04:26→23:33)
[2018-09-05 07:36] LABS: BASOPHILS % 0.2 % (0.0-2.0); EOSINOPHILS % 0.1 % (0.0-5.0); HEMATOCRIT. 38.2 % (42.0-52.0); HEMOGLOBIN. 12.1 g/dL (14.0-18.0); LYMPHOCYTES % 10.8 % (20.0-50.0); MEAN CORPUSCULAR HEMOGLOBIN 26.7 pg (28.0-32.0); MEAN PLATELET VOLUME 8.2 fl (7.4-10.4); MONOCYTES % 7.9 % (2.0-8.0); PLATELET 645 x1000/uL (130-400); RED BLOOD CELL COUNT 4.54 mill/uL (4.7-6.1); RED CELL DISTRIBUTION WIDTH 17.3 % (11.6-14.6)
[2018-09-05 07:54] LABS: CHLORIDE 102 mEq/L (98-107)
[2018-09-05] MEDS ORDERED: LIDOCAINE HCL 1% 20ML VIAL (Pyxis) INJ ONE (09:55)
[2018-09-05] MEDS ORDERED: SODIUM BICARBONATE 4% (2.4MEQ) 5ML VIAL IV ONE (09:55)
[2018-09-05] MEDS: ASCORBIC ACID 500 MG TABLET GT SCH (09:59)
[2018-09-05] MEDS: MULTIVITAMINS,THER W-MINERALS TABLET GT SCH (09:59)
[2018-09-05] MEDS: LEVETIRACETAM 500MG/5ML CUP PO SCH ×2 (09:59→21:52)
[2018-09-05] MEDS: FAMOTIDINE 20MG/2ML VIAL IV SCH ×2 (09:59→21:53)
[2018-09-05] MEDS: ZINC SULFATE 220 MG ( 50 ) CAPSULE GT SCH (09:59)
[2018-09-05] MEDS: SULFAMETHOXAZOLE/TRIMETHOPRIM 800/160MG TABLET PO SCH ×2 (10:00→21:52)
[2018-09-05] MEDS: LEVOFLOXACIN 500MG TABLET PO SCH (15:06)
[2018-09-06] VITALS (12 sets, daily range): BP systolic 101–127; BP diastolic 72–97
[2018-09-06] MEDS: CEFEPIME 2,000 MG in DEXT 5% WATER 100 ML IV SCH ×2 (02:37→14:53)
[2018-09-06] MEDS: IPRATROPIUM/ALBUTEROL 0.5-3(2.5)MG/3ML NEB HHN SCH ×3 (04:00→12:00)
[2018-09-06] MEDS: HYDROMORPHONE HCL/PF 2MG/ML CPJ IV PRN ×3 (04:37→23:57)
[2018-09-06] MEDS: LEVETIRACETAM 500MG/5ML CUP PO SCH ×2 (09:05→21:27)
[2018-09-06] MEDS: FAMOTIDINE 20MG/2ML VIAL IV SCH ×2 (09:05→21:27)
[2018-09-06] MEDS: ZINC SULFATE 220 MG ( 50 ) CAPSULE GT SCH (09:05)
[2018-09-06] MEDS: SULFAMETHOXAZOLE/TRIMETHOPRIM 800/160MG TABLET PO SCH ×2 (09:05→21:27)
[2018-09-06] MEDS: ASCORBIC ACID 500 MG TABLET GT SCH (09:06)
[2018-09-06] MEDS: MULTIVITAMINS,THER W-MINERALS TABLET GT SCH (09:06)
[2018-09-06 09:26] LABS: BG BASE EXCESS 1.3 mmol/L (-2.0-2.0); BG CARBOXYHEMOGLOBIN 0.3 % (0.5-1.5); BG FRACTION INSPIRED OXYGEN 100; BG HCO3 ACT 26.7 mmol/L (22.0-26.0); BG METHEMOGLOBIN 0.3 % (0.0-1.5); BG OXYHEMOGLOBIN 98.4 % (94.0-97.0); BG PCO2 45.7 mmHg (35.0-45.0); BG PH 7.385 (7.350-7.450); BG PO2 188.2 mmHg (75.0-100.0); BG SAMPLE SITE RIGHT RADIAL; BG TIDAL VOLUME(mL) 450 mL; BG TOTAL HEMOGLOBIN 12.1 g/dL (12.0-18.0); BG VENT MODE VENT - A/C; BG VENT RATE 12 set
[2018-09-06] MEDS: LEVOFLOXACIN 500MG TABLET PO SCH (14:53)
[2018-09-06] MEDS ORDERED: SODIUM CHLORIDE 0.9% 500 ML IV ONE (16:00)
[2018-09-06] MEDS: IPRATROPIUM BROMIDE (0.02%) 0.5MG/2.5ML NEB HHN SCH ×2 (16:10→20:53)
[2018-09-07] VITALS (12 sets, daily range): BP systolic 99–118; BP diastolic 64–77
[2018-09-07] MEDS: IPRATROPIUM BROMIDE (0.02%) 0.5MG/2.5ML NEB HHN SCH ×3 (01:46→14:41)
[2018-09-07] MEDS: CEFEPIME 2,000 MG in DEXT 5% WATER 100 ML IV SCH ×2 (02:32→14:52)
[2018-09-07 06:47] LABS: BASOPHILS % 0.7 % (0.0-2.0); EOSINOPHILS % 0.1 % (0.0-5.0); HEMATOCRIT. 36.5 % (42.0-52.0); HEMOGLOBIN. 11.8 g/dL (14.0-18.0); LYMPHOCYTES % 11.8 % (20.0-50.0); MEAN CORPUSCULAR HEMOGLOBIN 27.4 pg (28.0-32.0); MEAN CORPUSCULAR VOLUME 85.1 fL (80.0-94.0); MONOCYTES % 8.1 % (2.0-8.0); NEUTROPHILS % 79.3 % (40.0-76.0); PLATELET 470 x1000/uL (130-400); RED BLOOD CELL COUNT 4.29 mill/uL (4.7-6.1); RED CELL DISTRIBUTION WIDTH 17.4 % (11.6-14.6)
[2018-09-07 07:17] LABS: CHLORIDE 106 mEq/L (98-107)
[2018-09-07] MEDS: SULFAMETHOXAZOLE/TRIMETHOPRIM 800/160MG TABLET PO SCH ×2 (08:33→21:21)
[2018-09-07] MEDS: ZINC SULFATE 220 MG ( 50 ) CAPSULE GT SCH (08:33)
[2018-09-07] MEDS: LEVETIRACETAM 500MG/5ML CUP PO SCH ×2 (08:33→21:20)
[2018-09-07] MEDS: ASCORBIC ACID 500 MG TABLET GT SCH (08:33)
[2018-09-07] MEDS: MULTIVITAMINS,THER W-MINERALS TABLET GT SCH (08:33)
[2018-09-07] MEDS: FAMOTIDINE 20MG/2ML VIAL IV SCH ×2 (08:33→21:21)
[2018-09-07 14:51] LABS: CLARITY URINE TURBID (CLEAR); KETONES URINE 2+ (NEGATIVE); LEUKOCYTE ESTERASE URINE 3+ (NEGATIVE); NITRITE URINE POSITIVE (NEGATIVE); OCCULT BLOOD URINE 3+ (NEGATIVE); PROTEIN URINE 2+ (NEGATIVE); SPECIFIC GRAVITY URINE 1.029 (1.005-1.030)
[2018-09-07] MEDS: LEVOFLOXACIN 500MG TABLET PO SCH (14:57)
[2018-09-07 14:59] LABS: COLOR URINE BROWN (YELLOW)
[2018-09-07] MEDS: HYDROMORPHONE HCL/PF 2MG/ML CPJ IV PRN (17:43)
[2018-09-08] VITALS (12 sets, daily range): BP systolic 100–119; BP diastolic 56–78
[2018-09-08] MEDS: CEFEPIME 2,000 MG in DEXT 5% WATER 100 ML IV SCH ×2 (03:26→15:38)
[2018-09-08] MEDS: IPRATROPIUM BROMIDE (0.02%) 0.5MG/2.5ML NEB HHN SCH ×3 (03:35→19:58)
[2018-09-08] MEDS: FAMOTIDINE 20MG/2ML VIAL IV SCH ×3 (09:00→20:23)
[2018-09-08] MEDS: MULTIVITAMINS,THER W-MINERALS TABLET GT SCH (09:07)
[2018-09-08] MEDS: ASCORBIC ACID 500 MG TABLET GT SCH (09:07)
[2018-09-08] MEDS: ZINC SULFATE 220 MG ( 50 ) CAPSULE GT SCH (09:07)
[2018-09-08] MEDS: LEVETIRACETAM 500MG/5ML CUP PO SCH ×2 (09:07→20:24)
[2018-09-08] MEDS: SULFAMETHOXAZOLE/TRIMETHOPRIM 800/160MG TABLET PO SCH ×2 (09:08→20:24)
[2018-09-08] MEDS: HYDROMORPHONE HCL/PF 2MG/ML CPJ IV PRN (09:09)
[2018-09-08] MEDS ORDERED: LIDOCAINE HCL 1% 20ML VIAL (Pyxis) INJ ONE (11:22)
[2018-09-08] MEDS: LEVOFLOXACIN 500MG TABLET PO SCH (15:38)
[2018-09-09] VITALS (16 sets, daily range): BP systolic 97–122; BP diastolic 61–82
[2018-09-09] MEDS: IPRATROPIUM BROMIDE (0.02%) 0.5MG/2.5ML NEB HHN SCH ×4 (02:10→20:32)
[2018-09-09] MEDS: CEFEPIME 2,000 MG in DEXT 5% WATER 100 ML IV SCH (02:13)
[2018-09-09 07:07] LABS: BASOPHILS % 0.5 % (0.0-2.0); EOSINOPHILS % 0.1 % (0.0-5.0); HEMATOCRIT. 33.4 % (42.0-52.0); HEMOGLOBIN. 10.7 g/dL (14.0-18.0); LYMPHOCYTES % 9.8 % (20.0-50.0); MEAN CORPUSCULAR VOLUME 84.9 fL (80.0-94.0); MEAN PLATELET VOLUME 8.3 fl (7.4-10.4); MONOCYTES % 8.8 % (2.0-8.0); NEUTROPHILS % 80.8 % (40.0-76.0); PLATELET 479 x1000/uL (130-400); RED BLOOD CELL COUNT 3.94 mill/uL (4.7-6.1); RED CELL DISTRIBUTION WIDTH 17.4 % (11.6-14.6)
[2018-09-09 07:45] LABS: CHLORIDE 107 mEq/L (98-107)
[2018-09-09] MEDS: ASCORBIC ACID 500 MG TABLET GT SCH (09:24)
[2018-09-09] MEDS: FAMOTIDINE 20MG/2ML VIAL IV SCH ×2 (09:24→21:50)
[2018-09-09] MEDS: ZINC SULFATE 220 MG ( 50 ) CAPSULE GT SCH (09:24)
[2018-09-09] MEDS: MULTIVITAMINS,THER W-MINERALS TABLET GT SCH (09:24)
[2018-09-09] MEDS: LEVETIRACETAM 500MG/5ML CUP PO SCH ×2 (09:25→21:50)
[2018-09-09] MEDS: SULFAMETHOXAZOLE/TRIMETHOPRIM 800/160MG TABLET PO SCH ×2 (09:25→21:51)
[2018-09-09] MEDS: LEVOFLOXACIN 500MG TABLET PO SCH (15:42)
[2018-09-09] MEDS: MEROPENEM 1,000 MG in SODIUM CHLORIDE 0.9% 100 ML IV SCH (18:44)
[2018-09-10] VITALS (10 sets, daily range): BP systolic 103–114; BP diastolic 52–75
[2018-09-10] MEDS: IPRATROPIUM BROMIDE (0.02%) 0.5MG/2.5ML NEB HHN SCH ×3 (01:29→14:18)
[2018-09-10] MEDS: MEROPENEM 1,000 MG in SODIUM CHLORIDE 0.9% 100 ML IV SCH ×2 (05:26→17:37)
[2018-09-10 06:22] LABS: CLARITY URINE CLOUDY (CLEAR); COLOR URINE DARK YELLOW (YELLOW); KETONES URINE TRACE (NEGATIVE); LEUKOCYTE ESTERASE URINE TRACE (NEGATIVE); NITRITE URINE NEGATIVE (NEGATIVE); OCCULT BLOOD URINE 3+ (NEGATIVE); PROTEIN URINE 1+ (NEGATIVE); SPECIFIC GRAVITY URINE 1.029 (1.005-1.030)
[2018-09-10 07:30] LABS: BASOPHILS % 0.2 % (0.0-2.0); EOSINOPHILS % 0.2 % (0.0-5.0); HEMATOCRIT. 33.9 % (42.0-52.0); HEMOGLOBIN. 10.6 g/dL (14.0-18.0); LYMPHOCYTES % 9.4 % (20.0-50.0); MEAN CORPUSCULAR HEMOGLOBIN 26.8 pg (28.0-32.0); MEAN CORPUSCULAR VOLUME 85.2 fL (80.0-94.0); MEAN PLATELET VOLUME 8.6 fl (7.4-10.4); MONOCYTES % 8.2 % (2.0-8.0); PLATELET 472 x1000/uL (130-400); RED BLOOD CELL COUNT 3.97 mill/uL (4.7-6.1); RED CELL DISTRIBUTION WIDTH 17.8 % (11.6-14.6)
[2018-09-10 08:02] LABS: CHLORIDE 108 mEq/L (98-107)
[2018-09-10] MEDS: LEVETIRACETAM 500MG/5ML CUP PO SCH ×2 (10:36→22:29)
[2018-09-10] MEDS: ZINC SULFATE 220 MG ( 50 ) CAPSULE GT SCH (10:37)
[2018-09-10] MEDS: FAMOTIDINE 20MG/2ML VIAL IV SCH ×2 (10:37→22:29)
[2018-09-10] MEDS: LEVOFLOXACIN 500MG TABLET PO SCH (10:37)
[2018-09-10] MEDS: SULFAMETHOXAZOLE/TRIMETHOPRIM 800/160MG TABLET PO SCH ×2 (10:37→22:29)
[2018-09-10] MEDS: MULTIVITAMINS,THER W-MINERALS TABLET GT SCH (10:37)
[2018-09-10] MEDS: ASCORBIC ACID 500 MG TABLET GT SCH (10:37)
[2018-09-10] MEDS: SODIUM CHLORIDE 0.45% 1,000 ML IV SCH (13:04)
[2018-09-10] MEDS ORDERED: DIATR MEGLU/DIATRIZOATE SOLN 30ML PO SCH (14:15)
[2018-09-10] MEDS: VANCOMYCIN 1 G PREMIX 200 ML IV SCH (15:22)
[2018-09-10] MEDS: HYDROMORPHONE HCL/PF 2MG/ML CPJ IV PRN (15:24)
[2018-09-11] VITALS (19 sets, daily range): BP systolic 93–112; BP diastolic 53–72
[2018-09-11] MEDS: VANCOMYCIN 1 G PREMIX 200 ML IV SCH ×2 (04:12→17:56)
[2018-09-11] MEDS: MEROPENEM 1,000 MG in SODIUM CHLORIDE 0.9% 100 ML IV SCH ×2 (05:00→18:07)
[2018-09-11] MEDS ORDERED: DIATR MEGLU/DIATRIZOATE SOLN 30ML PO SCH (06:14)
[2018-09-11 06:43] LABS: BASOPHILS % 0.2 % (0.0-2.0); EOSINOPHILS % 0.5 % (0.0-5.0); HEMATOCRIT. 30.6 % (42.0-52.0); HEMOGLOBIN. 9.6 g/dL (14.0-18.0); LYMPHOCYTES % 10.2 % (20.0-50.0); MEAN CORPUSCULAR HEMOGLOBIN 27.1 pg (28.0-32.0); MEAN CORPUSCULAR VOLUME 86.7 fL (80.0-94.0); MEAN PLATELET VOLUME 8.5 fl (7.4-10.4); MONOCYTES % 5.4 % (2.0-8.0); NEUTROPHILS % 83.7 % (40.0-76.0); PLATELET 351 x1000/uL (130-400); RED BLOOD CELL COUNT 3.53 mill/uL (4.7-6.1); RED CELL DISTRIBUTION WIDTH 17.2 % (11.6-14.6)
[2018-09-11 06:52] LABS: CHLORIDE 105 mEq/L (98-107)
[2018-09-11] MEDS: IPRATROPIUM BROMIDE (0.02%) 0.5MG/2.5ML NEB HHN SCH ×3 (07:44→20:30)
[2018-09-11] MEDS: LEVOFLOXACIN 500MG TABLET PO SCH (10:07)
[2018-09-11] MEDS: ZINC SULFATE 220 MG ( 50 ) CAPSULE GT SCH (10:07)
[2018-09-11] MEDS: FAMOTIDINE 20MG/2ML VIAL IV SCH ×2 (10:07→21:50)
[2018-09-11] MEDS: ASCORBIC ACID 500 MG TABLET GT SCH (10:07)
[2018-09-11] MEDS: LEVETIRACETAM 500MG/5ML CUP PO SCH ×2 (10:07→21:49)
[2018-09-11] MEDS: SULFAMETHOXAZOLE/TRIMETHOPRIM 800/160MG TABLET PO SCH ×2 (10:08→21:49)
[2018-09-11] MEDS: SODIUM CHLORIDE 0.45% 1,000 ML IV SCH (10:08)
[2018-09-11] MEDS: MULTIVITAMINS,THER W-MINERALS TABLET GT SCH (10:08)
[2018-09-11 13:14] LABS: BG BASE EXCESS 4.5 mmol/L (-2.0-2.0); BG CARBOXYHEMOGLOBIN 0.3 % (0.5-1.5); BG DEOXYHEMOGLOBIN 1.9 % (0.0-5.0); BG FRACTION INSPIRED OXYGEN 60; BG HCO3 ACT 28.7 mmol/L (22.0-26.0); BG METHEMOGLOBIN 0.2 % (0.0-1.5); BG OXYGEN SATURATION 98.1 % (92.0-98.5); BG OXYHEMOGLOBIN 97.6 % (94.0-97.0); BG PH 7.463 (7.350-7.450); BG PO2 112.8 mmHg (75.0-100.0); BG SAMPLE SITE RIGHT BRACHIAL; BG TIDAL VOLUME(mL) 450 mL; BG TOTAL HEMOGLOBIN 9.2 g/dL (12.0-18.0); BG VENT MODE VENT - A/C; BG VENT RATE 12 set
[2018-09-12] VITALS (12 sets, daily range): BP systolic 96–119; BP diastolic 58–77
[2018-09-12] MEDS: IPRATROPIUM BROMIDE (0.02%) 0.5MG/2.5ML NEB HHN SCH ×4 (01:41→19:59)
[2018-09-12] MEDS: VANCOMYCIN 1 G PREMIX 200 ML IV SCH ×2 (04:41→18:38)
[2018-09-12] MEDS: MEROPENEM 1,000 MG in SODIUM CHLORIDE 0.9% 100 ML IV SCH ×2 (06:11→18:38)
[2018-09-12 06:35] LABS: BASOPHILS % 0.3 % (0.0-2.0); EOSINOPHILS % 0.6 % (0.0-5.0); HEMATOCRIT. 28.2 % (42.0-52.0); HEMOGLOBIN. 9.1 g/dL (14.0-18.0); LYMPHOCYTES % 8.9 % (20.0-50.0); MEAN CORPUSCULAR HEMOGLOBIN 27.6 pg (28.0-32.0); MEAN CORPUSCULAR VOLUME 85.3 fL (80.0-94.0); MEAN PLATELET VOLUME 8.4 fl (7.4-10.4); MONOCYTES % 5.4 % (2.0-8.0); NEUTROPHILS % 84.8 % (40.0-76.0); PLATELET 316 x1000/uL (130-400); RED BLOOD CELL COUNT 3.31 mill/uL (4.7-6.1); RED CELL DISTRIBUTION WIDTH 16.8 % (11.6-14.6)
[2018-09-12 06:40] LABS: CHLORIDE 99 mEq/L (98-107)
[2018-09-12] MEDS: ZINC SULFATE 220 MG ( 50 ) CAPSULE GT SCH (09:51)
[2018-09-12] MEDS: LEVETIRACETAM 500MG/5ML CUP PO SCH ×2 (09:51→22:04)
[2018-09-12] MEDS: MULTIVITAMINS,THER W-MINERALS TABLET GT SCH (09:51)
[2018-09-12] MEDS: ASCORBIC ACID 500 MG TABLET GT SCH (09:51)
[2018-09-12] MEDS: SULFAMETHOXAZOLE/TRIMETHOPRIM 800/160MG TABLET PO SCH ×2 (09:51→22:04)
[2018-09-12] MEDS: FAMOTIDINE 20MG/2ML VIAL IV SCH ×2 (09:51→22:04)
[2018-09-12] MEDS: SODIUM CHLORIDE 0.45% 1,000 ML IV SCH (09:52)
[2018-09-12] MEDS: LEVOFLOXACIN 500MG TABLET PO SCH (11:54)
[2018-09-12] MEDS ORDERED: LIDOCAINE HCL 1% 20ML VIAL (Pyxis) INJ ONE (13:41)
[2018-09-12] MEDS ORDERED: SODIUM BICARBONATE 4% (2.4MEQ) 5ML VIAL IV ONE (13:41)
[2018-09-12] MEDS ORDERED: LIDOCAINE HCL 1% 20ML VIAL (Pyxis) INJ INFIL NR (17:30)
[2018-09-13] VITALS (11 sets, daily range): BP systolic 81–112; BP diastolic 47–70
[2018-09-13] MEDS: IPRATROPIUM BROMIDE (0.02%) 0.5MG/2.5ML NEB HHN SCH ×3 (02:08→15:13)
[2018-09-13] MEDS: MEROPENEM 1,000 MG in SODIUM CHLORIDE 0.9% 100 ML IV SCH (06:04)
[2018-09-13] MEDS: VANCOMYCIN 1 G PREMIX 200 ML IV SCH (06:46)
[2018-09-13 06:53] LABS: HEMATOCRIT. 28.3 % (42.0-52.0); HEMOGLOBIN. 9.3 g/dL (14.0-18.0); MEAN CORPUSCULAR HEMOGLOBIN 27.9 pg (28.0-32.0); MEAN CORPUSCULAR VOLUME 85.4 fL (80.0-94.0); MEAN PLATELET VOLUME 8.4 fl (7.4-10.4); PLATELET 323 x1000/uL (130-400); RED BLOOD CELL COUNT 3.31 mill/uL (4.7-6.1); RED CELL DISTRIBUTION WIDTH 16.8 % (11.6-14.6)
[2018-09-13 07:16] LABS: CHLORIDE 102 mEq/L (98-107)
[2018-09-13] MEDS: ASCORBIC ACID 500 MG TABLET GT SCH (09:39)
[2018-09-13] MEDS: ZINC SULFATE 220 MG ( 50 ) CAPSULE GT SCH (09:39)
[2018-09-13] MEDS: MULTIVITAMINS,THER W-MINERALS TABLET GT SCH (09:39)
[2018-09-13] MEDS: FAMOTIDINE 20MG/2ML VIAL IV SCH (09:39)
[2018-09-13] MEDS: LEVETIRACETAM 500MG/5ML CUP PO SCH (09:39)
[2018-09-13] MEDS: SULFAMETHOXAZOLE/TRIMETHOPRIM 800/160MG TABLET PO SCH (09:39)
[2018-09-13 11:15] LABS: PLATELET ESTIMATE NORMAL
[2018-09-13] MEDS: LEVOFLOXACIN 500MG TABLET PO SCH (11:23)
[2018-09-13] MEDS ORDERED: LORAZEPAM 2MG/ML CPJ IV NR (12:15)
[2018-09-13 13:05] LABS: CHLORIDE 99 mEq/L (98-107)
[2018-09-13] MEDS ORDERED: HYDROMORPHONE HCL/PF 2MG/ML CPJ IV PRN (13:30)
[2018-09-13] MEDS ORDERED: ETOMIDATE 2MG/ML 10ML VIAL IV SCH (14:15)
[2018-09-13] MEDS ORDERED: VANCOMYCIN 750 MG PREMIX 150 ML IV SCH (16:00)
[2018-09-13] MEDS: MORPHINE SULFATE 250 MG in DEXT 5% WATER 240 ML IV PRN (16:14)
[2018-09-13] MEDS ORDERED: LORAZEPAM 2MG/ML CPJ IV PRN (16:45)
[2018-09-14] VITALS (12 sets, daily range): BP systolic 63–94; BP diastolic 42–64
[2018-09-14] MEDS ORDERED: LORAZEPAM 2MG/ML CPJ IV PRN (16:45)
[2018-09-15] VITALS (23 sets, daily range): BP systolic 50–135; BP diastolic 27–50
[2018-09-15] MEDS: MORPHINE SULFATE 250 MG in DEXT 5% WATER 240 ML IV PRN (05:11)
[2018-09-16] VITALS: BP 48/32
[2018-09-16] MEDS: MORPHINE SULFATE 250 MG in DEXT 5% WATER 240 ML IV PRN (00:12)
[2018-09-16 02:00] VITALS: BP 45/31
[2018-09-16 04:00] VITALS: BP 47/26
[2018-09-16 05:30] VITALS: BP 0/0
== END 2018-09-16 05:30 | disposition expired | DRG 720 ==
LOC: ER 02:29 → 5EST 05:18 → EDBEDREQ 05:27 → EDBEDREQTM 05:27 → ENRESERV 07:21
PROVIDERS: ADMIT Internal Medicine; ATTEND Internal Medicine
PROC: 0W9B30Z Drainage of Left Pleural Cavity with Drainage Device, Percutaneous Approach (ICD-10-PCS; principal; 2018-08-31)
PROC: 0WPBX0Z Removal of Drainage Device from Left Pleural Cavity, External Approach (ICD-10-PCS; 2018-08-31)
PROC: 0W9B30Z Drainage of Left Pleural Cavity with Drainage Device, Percutaneous Approach (ICD-10-PCS; 2018-09-05)
PROC: 5A1955Z Respiratory Ventilation, Greater than 96 Consecutive Hours (ICD-10-PCS; 2018-09-12)
PROC: 0W9B30Z Drainage of Left Pleural Cavity with Drainage Device, Percutaneous Approach (ICD-10-PCS; 2018-09-12)
DX: A41.52 Sepsis due to Pseudomonas (principal); J96.21 Acute and chronic respiratory failure with hypoxia; E43 Unspecified severe protein-calorie malnutrition; G82.50 Quadriplegia, unspecified; Z99.11 Dependence on respirator [ventilator] status; J15.1 Pneumonia due to Pseudomonas; G93.41 Metabolic encephalopathy; Z93.0 Tracheostomy status; I95.9 Hypotension, unspecified; J93.83 Other pneumothorax; E16.2 Hypoglycemia, unspecified; G40.909 Epilepsy, unspecified, not intractable, without status epilepticus; L89.90 Pressure ulcer of unspecified site, unspecified stage; R13.10 Dysphagia, unspecified; Z51.5 Encounter for palliative care; N39.0 Urinary tract infection, site not specified; Z66 Do not resuscitate; D50.9 Iron deficiency anemia, unspecified; G89.29 Other chronic pain; Z79.2 Long term (current) use of antibiotics; Z79.899 Other long term (current) drug therapy; Z68.1 Body mass index [BMI] 19.9 or less, adult; Z93.1 Gastrostomy status; Z87.820 Personal history of traumatic brain injury; T85.628A Displacement of other specified internal prosthetic devices, implants and grafts, initial encounter; Y83.8 Other surgical procedures as the cause of abnormal reaction of the patient, or of later complication, without mention of misadventure at the time of the procedure; Y92.238 Other place in hospital as the place of occurrence of the external cause
CPT/HCPCS: 36415; 36569; 36600; 71045; 71250; 76937; 80048; 80202; 82375; 82805; 82962; 83605; 87070; 87077; 87186; 93970; 94003; 94640; 96374; 99285; A6261; C1725; C1769; C9113; J0692; J0770; J1170; J2060; J2185; J2274; J2543; J3370; J3490; J7030; J7040; J7042; J7050; J7060; J7608; J7620; A4315